=== PATIENT | male | born 1985 | race African-American/Black ===

== ENCOUNTER 2018-01-09 17:15 | Inpatient (IN) | payer MEDICAID ==
[~2018-01-09] VITALS: Ht 172.7 cm; Wt 83.9 kg
[~2018-01-09 17:15] MED LIST: QUET50TA PO
[2018-01-09 17:46] LABS: BASOPHILS % (AUTO) 0.3 % (0.0-2.0); EOSINOPHILS % (AUTO) 1.5 % (1.0-6.0); HEMATOCRIT 42.4 % (41-53); HEMOGLOBIN 14.5 g/dL (13.5-17.5); MEAN CORPUSCULAR HEMOGLOBIN 29.7 pg (26.0-34.0); MEAN CORPUSCULAR HGB CONC 34.1 G/dL (31.0-37.0); MEAN CORPUSCULAR VOLUME 87 fL (80-100); MONOCYTES # (AUTO) 0.7 K/uL (0.1-1.0); MONOCYTES % (AUTO) 9.3 % (2.0-9.0); NEUTROPHILS # (AUTO) 4.9 K/uL (1.8-7.7); NEUTROPHILS % (AUTO) 62.9 % (40.0-70.0); PLATELET COUNT (AUTO) 350 K/uL (150-450); RED BLOOD CELL COUNT(AUTO) 4.86 MIL/uL (4.50-5.90); RED CELL DISTRIBUTION WIDTH 13.4 % (11.5-14.5)
[2018-01-09 17:55] LABS: ANION GAP 7 mmol/L (8-16); CALCIUM, TOTAL 9.1 mg/dL (8.8-10.5); CARBON DIOXIDE 31 mmol/L (22-29); CHLORIDE 104 mmol/L (98-107); CREATININE 0.86 mg/dL (0.60-1.30); GLOMERULAR FILTR. RATE CALC > 60 mL/min (>60); GLUCOSE,RANDOM 101 mg/dL (70-110); POTASSIUM 3.8 mmol/L (3.5-5.1); SODIUM SERUM 142 mmol/L (136-145); UREA NITROGEN, BLOOD 14 mg/dL (7-18)
[2018-01-09 18:02] LABS: ALANINE AMINOTRANSFERASE 67 U/L (12-78); ALBUMIN 3.8 g/dL (3.4-5.0); ALKALINE PHOSPHATASE 55 U/L (46-116); ASPARTATE AMINOTRANSFERASE 44 U/L (15-37); BILIRUBIN,TOTAL 0.2 mg/dL (0.1-1.0); TOTAL PROTEIN, SERUM 7.6 g/dL (6.4-8.2)
[2018-01-09] MEDS ORDERED: HALOPERIDOL 5 MG TABLET PO PRN (18:15)
[2018-01-09 19:11] LABS: AMPHET/METH SCREEN,URINE NEGATIVE (NEGATIVE); BARBITURATE SCREEN, URINE NEGATIVE (NEGATIVE); BENZODIAZEPINES SCREEN,URINE NEGATIVE (NEGATIVE); CANNABINOID SCREEN,URINE NEGATIVE (NEGATIVE); COCAINE SCREEN,URINE NEGATIVE (NEGATIVE); METHADONE SCREEN, URINE NEGATIVE (NEGATIVE); OPIATE SCREEN,URINE NEGATIVE (NEGATIVE); PHENCYCLIDINE SCREEN,URINE NEGATIVE (NEGATIVE)
[2018-01-09 20:11] VITALS: BP 137/92
[2018-01-09] MEDS: LORazepam 2 MG TABLET PO PRN (20:20)
[2018-01-09] MEDS: ZOLPIDEM TARTRATE 10 MG TABLET PO PRN (20:20)
[2018-01-10 04:42] VITALS: BP 128/85
[2018-01-10] MEDS: LORazepam 2 MG TABLET PO PRN ×3 (04:42→20:24)
[2018-01-10 08:02] VITALS: BP 130/80
[2018-01-10 08:33] LABS: CHOL/HDL RATIO 1.9 (4.2-7.3)
[2018-01-10] MEDS ORDERED: BACITRACIN 28.4 GM OINTMENT TP PRN (10:00)
[2018-01-10] MEDS ORDERED: ACETAMINOPHEN 325 MG TABLET PO PRN (10:00)
[2018-01-10] MEDS ORDERED: CloNIDine HCL 0.1 MG TABLET PO PRN (10:00)
[2018-01-10] MEDS ORDERED: BENZOCAINE/MENTHOL LOZENGE MM PRN (10:00)
[2018-01-10] MEDS ORDERED: PETROLATUM,WHITE 71 GM JELLY TP PRN (10:00)
[2018-01-10] MEDS ORDERED: MAGNESIUM HYDROXIDE SUSPENSION 30 ML UDCUP PO PRN (10:00)
[2018-01-10] MEDS ORDERED: ONDANSETRON HCL 4 MG TABLET PO PRN (10:00)
[2018-01-10] MEDS ORDERED: MAG HYDROX/AL HYDROX/SIMETH ES 30 ML SUSPENSION UDCUP PO PRN (10:00)
[2018-01-10] MEDS ORDERED: LOPERAMIDE HCL 2 MG CAPSULE PO PRN (10:00)
[2018-01-10 16:05] VITALS: BP 138/85
[2018-01-10] MEDS: ZOLPIDEM TARTRATE 10 MG TABLET PO PRN (20:24)
[2018-01-11 03:51] VITALS: BP 132/89
[2018-01-11] MEDS: LORazepam 2 MG TABLET PO PRN ×4 (03:53→20:25)
[2018-01-11 08:05] VITALS: BP 137/82
[2018-01-11] MEDS: ALBUTEROL SULFATE HFA 90 MCG/PUFF 8 GM INHALER IH PRN ×2 (15:02→21:18)
[2018-01-11 16:29] VITALS: BP 136/66
[2018-01-11] MEDS: ZOLPIDEM TARTRATE 10 MG TABLET PO PRN (20:25)
[2018-01-11] MEDS: QUEtiapine FUMARATE 300 MG TABLET PO SCH (20:25)
[2018-01-12 08:25] VITALS: BP 134/75
[2018-01-12] MEDS: LORazepam 2 MG TABLET PO PRN ×2 (09:45→17:26)
[2018-01-12] MEDS: NICOTINE 21 MG/24 HOUR PATCH TD SCH (10:39)
[2018-01-12 16:06] VITALS: BP 137/76
[2018-01-12] MEDS: QUEtiapine FUMARATE 300 MG TABLET PO SCH (20:11)
[2018-01-12] MEDS: ZOLPIDEM TARTRATE 10 MG TABLET PO PRN ×2 (20:11→20:33)
[2018-01-13] MEDS: LORazepam 2 MG TABLET PO PRN ×2 (00:39→16:34)
[2018-01-13 05:56] VITALS: BP 122/83
[2018-01-13 08:10] VITALS: BP 116/61
[2018-01-13] MEDS: NICOTINE 21 MG/24 HOUR PATCH TD SCH (08:51)
[2018-01-13 16:27] VITALS: BP 144/93
[2018-01-13] MEDS: QUEtiapine FUMARATE 300 MG TABLET PO SCH (21:00)
[2018-01-13] MEDS: ZOLPIDEM TARTRATE 10 MG TABLET PO PRN (21:00)
[2018-01-14 00:27] VITALS: BP 124/89
[2018-01-14] MEDS: IBUPROFEN 600 MG TABLET PO PRN ×2 (05:17→19:26)
[2018-01-14 08:07] VITALS: BP 132/86
[2018-01-14] MEDS: NICOTINE 21 MG/24 HOUR PATCH TD SCH (08:44)
[2018-01-14 16:20] VITALS: BP 136/85
[2018-01-14] MEDS: LORazepam 2 MG TABLET PO PRN (16:40)
[2018-01-14] MEDS: ZOLPIDEM TARTRATE 10 MG TABLET PO PRN (20:17)
[2018-01-14] MEDS: QUEtiapine FUMARATE 300 MG TABLET PO SCH (20:17)
[2018-01-15 02:49] VITALS: BP 117/87
[2018-01-15 08:05] VITALS: BP 121/61
[2018-01-15] MEDS: NICOTINE 21 MG/24 HOUR PATCH TD SCH (09:00)
[2018-01-15] MEDS: LORazepam 2 MG TABLET PO PRN (12:42)
[2018-01-15 16:13] VITALS: BP 135/78
[2018-01-15] MEDS: ZOLPIDEM TARTRATE 10 MG TABLET PO PRN (20:30)
[2018-01-15] MEDS: QUEtiapine FUMARATE 300 MG TABLET PO SCH (20:30)
[2018-01-16 01:20] VITALS: BP 121/69
[2018-01-16] MEDS: IBUPROFEN 600 MG TABLET PO PRN (01:23)
[2018-01-16] MEDS: NICOTINE 21 MG/24 HOUR PATCH TD SCH (08:19)
[2018-01-16] MEDS: LORazepam 2 MG TABLET PO PRN (08:20)
[2018-01-16 08:53] VITALS: BP 124/61
== END 2018-01-16 13:30 | disposition home or self-care (01) | DRG 750 ==
LOC: EMS 17:17 → B3A 18:41
PROVIDERS: ADMIT Psychiatry & Neurology Psychiatry; ATTEND Psychiatry & Neurology Psychiatry
DX: F25.9 Schizoaffective disorder, unspecified (principal); E78.5 Hyperlipidemia, unspecified; F17.200 Nicotine dependence, unspecified, uncomplicated; G47.00 Insomnia, unspecified; F41.9 Anxiety disorder, unspecified; R03.0 Elevated blood-pressure reading, without diagnosis of hypertension
CPT/HCPCS: 99285; G0480; J3535

== ENCOUNTER 2019-02-10 12:09 | Inpatient (IN) | payer MEDICAID ==
[~2019-02-10] VITALS: Ht 172.7 cm; Wt 88.9 kg
[~2019-02-10 12:09] MED LIST changes: +BUPR-93 PO; +QUET100T PO; +QUET200T PO; -QUET50TA PO
[2019-02-10] MEDS ORDERED: QUEtiapine FUMARATE 100 MG TABLET PO ONE (13:15)
[2019-02-10 13:30] LABS: BASOPHILS % (AUTO) 0.5 % (0.0-2.0); EOSINOPHILS % (AUTO) 0.3 % (1.0-6.0); HEMOGLOBIN 14.8 g/dL (13.5-17.5); LYMPHOCYTES # (AUTO) 1.9 K/uL (1.0-4.8); MEAN CORPUSCULAR HEMOGLOBIN 29.2 pg (26.0-34.0); MEAN CORPUSCULAR HGB CONC 32.8 G/dL (31.0-37.0); MEAN CORPUSCULAR VOLUME 89 fL (80-100); MONOCYTES % (AUTO) 11.9 % (2.0-9.0); NEUTROPHILS # (AUTO) 5.3 K/uL (1.8-7.7); NEUTROPHILS % (AUTO) 64.3 % (40.0-70.0); PLATELET COUNT (AUTO) 265 K/uL (150-450); RED BLOOD CELL COUNT(AUTO) 5.05 MIL/uL (4.50-5.90); RED CELL DISTRIBUTION WIDTH 13.9 % (11.5-14.5)
[2019-02-10 13:41] LABS: ANION GAP 11 mmol/L (8-16); CALCIUM, TOTAL 9.5 mg/dL (8.8-10.5); CARBON DIOXIDE 29 mmol/L (22-29); CHLORIDE 103 mmol/L (98-107); CREATININE 1.04 mg/dL (0.60-1.30); GLOMERULAR FILTR. RATE CALC > 60 mL/min (>60); GLUCOSE,RANDOM 89 mg/dL (70-110); POTASSIUM 3.7 mmol/L (3.5-5.1); SODIUM SERUM 143 mmol/L (136-145); UREA NITROGEN, BLOOD 14 mg/dL (7-18)
[2019-02-10 13:49] LABS: ALANINE AMINOTRANSFERASE 22 U/L (12-78); ALBUMIN 4.2 g/dL (3.4-5.0); ALKALINE PHOSPHATASE 71 U/L (46-116); ASPARTATE AMINOTRANSFERASE 30 U/L (15-37); BILIRUBIN,TOTAL 0.4 mg/dL (0.1-1.0); TOTAL PROTEIN, SERUM 8.5 g/dL (6.4-8.2)
[2019-02-11] MEDS ORDERED: MAG HYDROX/AL HYDROX/SIMETH ES 30 ML SUSPENSION UDCUP PO PRN (11:30)
[2019-02-11] MEDS ORDERED: MAGNESIUM HYDROXIDE SUSPENSION 30 ML UDCUP PO PRN (11:30)
[2019-02-11] MEDS ORDERED: ONDANSETRON HCL 4 MG TABLET PO PRN (11:30)
[2019-02-11] MEDS ORDERED: ACETAMINOPHEN 325 MG TABLET PO PRN (11:30)
[2019-02-11] MEDS ORDERED: DOCUSATE SODIUM 100 MG CAPSULE PO PRN (11:30)
[2019-02-11] MEDS ORDERED: PETROLATUM,WHITE 28 GM JELLY TP PRN (11:30)
[2019-02-11] MEDS ORDERED: CloNIDine HCL 0.1 MG TABLET PO PRN (11:30)
[2019-02-11] MEDS ORDERED: ALBUTEROL SULFATE HFA 90 MCG/PUFF 8 GM INHALER IH PRN (11:30)
[2019-02-11] MEDS ORDERED: GuaiFENesin/D-METHORPHAN [SUGAR-FREE] 200-20MG/10 ML SYRUP UDCUP PO PRN (11:30)
[2019-02-11] MEDS ORDERED: IBUPROFEN 400 MG TABLET PO PRN (11:30)
[2019-02-11] MEDS ORDERED: LOPERAMIDE HCL 2 MG CAPSULE PO PRN (11:30)
[2019-02-11] MEDS ORDERED: NICOTINE 14 MG/24 HOUR PATCH TD PRN (11:30)
[2019-02-11 13:00] VITALS: BP 122/75
[2019-02-11] MEDS: ARIPiprazole 15 MG TABLET PO SCH (14:11)
[2019-02-11 16:22] VITALS: BP 143/87
[2019-02-11] MEDS ORDERED: DIVALPROEX SODIUM 500 MG DR TABLET PO SCH (21:00)
[2019-02-12 00:12] VITALS: BP 118/70
[2019-02-12 08:05] VITALS: BP 117/73
[2019-02-12 08:29] LABS: BASOPHILS % (AUTO) 0.6 % (0.0-2.0); EOSINOPHILS % (AUTO) 2.3 % (1.0-6.0); HEMATOCRIT 45.1 % (41-53); HEMOGLOBIN 14.9 g/dL (13.5-17.5); LYMPHOCYTES # (AUTO) 2.4 K/uL (1.0-4.8); LYMPHOCYTES % (AUTO) 37.9 % (22.0-44.0); MEAN CORPUSCULAR HEMOGLOBIN 29.2 pg (26.0-34.0); MEAN CORPUSCULAR HGB CONC 33.1 G/dL (31.0-37.0); MEAN CORPUSCULAR VOLUME 88 fL (80-100); MONOCYTES # (AUTO) 0.8 K/uL (0.1-1.0); MONOCYTES % (AUTO) 12.6 % (2.0-9.0); NEUTROPHILS % (AUTO) 46.6 % (40.0-70.0); PLATELET COUNT (AUTO) 311 K/uL (150-450)
[2019-02-12] MEDS: ARIPiprazole 15 MG TABLET PO SCH (08:38)
[2019-02-12 09:33] LABS: HEMOGLOBIN A1C 5.8 % (4.5-6.2)
[2019-02-12 09:39] LABS: ALANINE AMINOTRANSFERASE 20 U/L (12-78); ALBUMIN 3.3 g/dL (3.4-5.0); ALKALINE PHOSPHATASE 62 U/L (46-116); ANION GAP 9 mmol/L (8-16); ASPARTATE AMINOTRANSFERASE 19 U/L (15-37); BILIRUBIN,TOTAL 0.3 mg/dL (0.1-1.0); CALCIUM, TOTAL 8.3 mg/dL (8.8-10.5); CARBON DIOXIDE 30 mmol/L (22-29); CHLORIDE 105 mmol/L (98-107); CHOL/HDL RATIO 2.7 (4.2-7.3); CHOLESTEROL 111 mg/dL (131-200); CREATININE 0.99 mg/dL (0.60-1.30); GLOMERULAR FILTR. RATE CALC > 60 mL/min (>60); GLUCOSE,RANDOM 95 mg/dL (70-110); HDL CHOLESTEROL 41 mg/dL (40-60); LDL CHOL (CALC.) 54 mg/dL (0-130); POTASSIUM 4.1 mmol/L (3.5-5.1); SODIUM SERUM 144 mmol/L (136-145); THYROID STIMULATING HORMONE 0.94 uIU/mL (0.36-3.74); TOTAL PROTEIN, SERUM 6.7 g/dL (6.4-8.2); TRIGLYCERIDES 82 mg/dL (15-150); UREA NITROGEN, BLOOD 20 mg/dL (7-18)
[2019-02-12 16:02] VITALS: BP 125/76
[2019-02-12] MEDS: DIVALPROEX SODIUM 500 MG DR TABLET PO SCH (16:41)
[2019-02-12] MEDS: LORazepam 2 MG TABLET PO PRN (20:59)
[2019-02-13 06:14] VITALS: BP 140/89
[2019-02-13 08:11] VITALS: BP 138/83
[2019-02-13] MEDS: ARIPiprazole 15 MG TABLET PO SCH (09:04)
[2019-02-13] MEDS: DIVALPROEX SODIUM 500 MG DR TABLET PO SCH ×2 (09:05→16:19)
[2019-02-13] MEDS: LORazepam 2 MG TABLET PO PRN (11:02)
[2019-02-13 16:04] VITALS: BP 124/71
[2019-02-14 01:11] VITALS: BP 128/76
[2019-02-14] MEDS: ZOLPIDEM TARTRATE 10 MG TABLET PO PRN (02:49)
[2019-02-14 08:02] VITALS: BP 113/71
[2019-02-14] MEDS: ARIPiprazole 15 MG TABLET PO SCH (08:55)
[2019-02-14] MEDS: DIVALPROEX SODIUM 500 MG DR TABLET PO SCH ×2 (08:55→16:07)
[2019-02-14] MEDS: LORazepam 2 MG TABLET PO PRN ×2 (09:23→16:25)
[2019-02-14 16:16] VITALS: BP 130/75
[2019-02-14] MEDS: QUEtiapine FUMARATE 25 MG TABLET PO PRN (19:43)
[2019-02-15 00:50] VITALS: BP 127/81
[2019-02-15 08:01] VITALS: BP 122/72
[2019-02-15] MEDS: DIVALPROEX SODIUM 500 MG DR TABLET PO SCH ×2 (08:37→16:19)
[2019-02-15] MEDS: ARIPiprazole 15 MG TABLET PO SCH (08:37)
[2019-02-15] MEDS: LORazepam 2 MG TABLET PO PRN (09:05)
[2019-02-15 16:04] VITALS: BP 119/64
[2019-02-15] MEDS: QUEtiapine FUMARATE 25 MG TABLET PO PRN (17:13)
[2019-02-16 00:19] VITALS: BP 118/74
[2019-02-16] MEDS: ZOLPIDEM TARTRATE 10 MG TABLET PO PRN (01:28)
[2019-02-16 08:04] VITALS: BP 136/69
[2019-02-16] MEDS: ARIPiprazole 15 MG TABLET PO SCH (08:35)
[2019-02-16] MEDS: DIVALPROEX SODIUM 500 MG DR TABLET PO SCH ×2 (08:35→16:15)
[2019-02-16] MEDS: LORazepam 2 MG TABLET PO PRN (09:25)
[2019-02-16 16:06] VITALS: BP 135/90
[2019-02-17 02:00] VITALS: BP 124/87
[2019-02-17 08:10] VITALS: BP 105/60
[2019-02-17] MEDS: DIVALPROEX SODIUM 500 MG DR TABLET PO SCH (08:37)
[2019-02-17] MEDS: ARIPiprazole 15 MG TABLET PO SCH (08:37)
[2019-02-17] MEDS: LORazepam 2 MG TABLET PO PRN (09:18)
[2019-02-17] MEDS ORDERED: DIVA-76 PO (13:35)
[2019-02-17] MEDS ORDERED: ARIP5TAB8 PO (13:35)
== END 2019-02-17 18:23 | disposition home or self-care (01) | DRG 750 ==
LOC: EMS 12:09 → 3EC 21:19 → UNDOADMIN 21:19 → 3EC 02-11 07:01 → B2X 02-11 08:31
PROVIDERS: ADMIT Psychiatry & Neurology Child & Adolescent Psychiatry; ATTEND Psychiatry & Neurology Child & Adolescent Psychiatry
DX: F20.9 Schizophrenia, unspecified (principal); Z91.14 Patient's other noncompliance with medication regimen; F19.10 Other psychoactive substance abuse, uncomplicated; F41.9 Anxiety disorder, unspecified; G44.209 Tension-type headache, unspecified, not intractable; K21.9 Gastro-esophageal reflux disease without esophagitis; Z79.899 Other long term (current) drug therapy; Z88.8 Allergy status to other drugs, medicaments and biological substances; Z71.41 Alcohol abuse counseling and surveillance of alcoholic; Z71.51 Drug abuse counseling and surveillance of drug abuser
CPT/HCPCS: 83036; 84443; G0480

== ENCOUNTER 2019-02-20 15:23 | Emergency (ER) | payer MEDICAID ==
[~2019-02-20] VITALS: Ht 172.7 cm; Wt 81.8 kg
[~2019-02-20 15:23] MED LIST changes: +ARIP5TAB8 PO; -BUPR-93 PO; +DIVA-76 PO; -QUET100T PO; -QUET200T PO
[2019-02-20 16:52] LABS: BASOPHILS % (AUTO) 0.6 % (0.0-2.0); EOSINOPHILS % (AUTO) 0.4 % (1.0-6.0); HEMATOCRIT 45.6 % (41-53); LYMPHOCYTES # (AUTO) 2.2 K/uL (1.0-4.8); LYMPHOCYTES % (AUTO) 24.3 % (22.0-44.0); MEAN CORPUSCULAR HEMOGLOBIN 28.5 pg (26.0-34.0); MEAN CORPUSCULAR HGB CONC 32.8 G/dL (31.0-37.0); MEAN CORPUSCULAR VOLUME 87 fL (80-100); MONOCYTES # (AUTO) 0.9 K/uL (0.1-1.0); MONOCYTES % (AUTO) 9.8 % (2.0-9.0); NEUTROPHILS # (AUTO) 5.8 K/uL (1.8-7.7); NEUTROPHILS % (AUTO) 64.9 % (40.0-70.0); PLATELET COUNT (AUTO) 364 K/uL (150-450); RED BLOOD CELL COUNT(AUTO) 5.25 MIL/uL (4.50-5.90); RED CELL DISTRIBUTION WIDTH 13.9 % (11.5-14.5)
[2019-02-20 17:09] LABS: ANION GAP 11 mmol/L (8-16); CALCIUM, TOTAL 9.4 mg/dL (8.8-10.5); CARBON DIOXIDE 28 mmol/L (22-29); CHLORIDE 104 mmol/L (98-107); CREATININE 1.04 mg/dL (0.60-1.30); GLOMERULAR FILTR. RATE CALC > 60 mL/min (>60); GLUCOSE,RANDOM 100 mg/dL (70-110); POTASSIUM 3.6 mmol/L (3.5-5.1); SODIUM SERUM 143 mmol/L (136-145); UREA NITROGEN, BLOOD 20 mg/dL (7-18)
[2019-02-20 17:14] LABS: ALANINE AMINOTRANSFERASE 27 U/L (12-78); ALBUMIN 4.1 g/dL (3.4-5.0); ALKALINE PHOSPHATASE 59 U/L (46-116); ASPARTATE AMINOTRANSFERASE 30 U/L (15-37); BILIRUBIN,TOTAL 0.4 mg/dL (0.1-1.0); TOTAL PROTEIN, SERUM 8.3 g/dL (6.4-8.2)
[2019-02-20] MEDS ORDERED: DIVALPROEX SODIUM 250 MG DR TABLET PO ONE (18:30)
[2019-02-20] MEDS ORDERED: ARIPiprazole 15 MG TABLET PO ONE (18:30)
[2019-02-20 18:40] VITALS: BP 139/95
== END 2019-02-20 18:55 | disposition home or self-care (01) ==
LOC: EMS 15:23
DX: F20.9 Schizophrenia, unspecified (principal); F17.210 Nicotine dependence, cigarettes, uncomplicated; Z79.899 Other long term (current) drug therapy; Z88.8 Allergy status to other drugs, medicaments and biological substances
CPT/HCPCS: 36415; 80053; 85025; 99285; 99406; G0480

== ENCOUNTER 2023-02-06 16:21 | Inpatient (IN) | payer MEDICAID ==
[~2023-02-06] VITALS: Ht 172.7 cm; Wt 106.2 kg
[~2023-02-06 16:21] MED LIST changes: +ARIP5TAB37 PO; -ARIP5TAB8 PO; +DIVA-111 PO; -DIVA-76 PO
[2023-02-06] MEDS ORDERED: QUET100T34 PO (17:14)
[2023-02-06] MEDS ORDERED: BUPR-49 PO (17:14)
[2023-02-06] MEDS ORDERED: HYDR-4527 PO (17:14)
[2023-02-06] MEDS ORDERED: QUET400T13 PO (17:14)
[2023-02-06] MEDS ORDERED: DIPH25CA85 PO (17:15)
[2023-02-06] MEDS ORDERED: MAGNESIUM SULFATE 2 GM/WATER 50 ML IV ONE (17:30)
[2023-02-06] MEDS ORDERED: RISPC375 IM (17:37)
[2023-02-06 17:41] LABS: ABG BASE EXCESS -0.6 mmol/L (-2.0-3.0); ABG CARBOXYHEMOGLOBIN 2.4 % (0.0-1.5); ABG HCO3 22.8 mmol/L (22.0-26.0); ABG METHEMOGLOBIN 0.4 % (0.0-1.5); ABG OXYGEN SATURATION 97.1 % (95.0-98.0); ABG OXYHEMOGLOBIN 94.4 % (94.0-100.0); ABG PCO2 56 mmHg (35-45); ABG TOTAL HEMOGLOBIN 16.5 G/dL (12.0-18.0); PO2, ARTERIAL BG 95.9 mmHg (92.0-100.0); SOURCE, BLOOD GAS ARTERIAL; TEMPERATURE, FAHRENHEIT, BG 95.4 FAHREN (96.0-98.6)
[2023-02-06 17:43] LABS: BASOPHILS % (AUTO) 0.5 % (0.0-2.0); EOSINOPHILS % (AUTO) 0.2 % (1.0-6.0); HEMATOCRIT 46.7 % (41-53); HEMOGLOBIN 15.2 g/dL (13.5-17.5); LYMPHOCYTES # (AUTO) 1.1 K/uL (1.0-4.8); LYMPHOCYTES % (AUTO) 8.3 % (22.0-44.0); MEAN CORPUSCULAR HEMOGLOBIN 29.8 pg (26.0-34.0); MEAN CORPUSCULAR HGB CONC 32.5 G/dL (31.0-37.0); MEAN CORPUSCULAR VOLUME 92 fL (80-100); MONOCYTES # (AUTO) 0.8 K/uL (0.1-1.0); NEUTROPHILS # (AUTO) 11.1 K/uL (1.8-7.7); PLATELET COUNT (AUTO) 259 K/uL (150-450); RED CELL DISTRIBUTION WIDTH 13.9 % (11.5-14.5)
[2023-02-06 17:43] LABS: ABG A-A DIFF O2 156.2 mmHg (10-20.0); ABG PH 7.285 (7.350-7.450); O2 DEVICE,BLOOD GAS CANNULA (ROOM AIR); SITE, BLOOD GAS RT RADIAL
[2023-02-06 17:44] LABS: COVID AG,FIA SOURCE NASOPHARYNGEAL
[2023-02-06 17:51] LABS: ANION GAP 9 mmol/L (8-16); CALCIUM, TOTAL 8.6 mg/dL (8.8-10.5); CARBON DIOXIDE 26 mmol/L (22-29); CHLORIDE 102 mmol/L (98-107); CREATININE 1.22 mg/dL (0.60-1.30); GLOMERULAR FILTR. RATE CALC > 60 mL/min (>60); GLUCOSE,RANDOM 179 mg/dL (70-110); POTASSIUM 4.6 mmol/L (3.5-5.1); SODIUM SERUM 137 mmol/L (136-145)
[2023-02-06 17:53] LABS: APPEARANCE,URINE CLEAR (CLEAR); BILIRUBIN,URINE NEGATIVE (NEGATIVE); GLUCOSE, URINE (UA) 70-100 mg/dL (NEGATIVE); KETONES,URINE TRACE mg/dL (NEGATIVE); LEUKOCYTE ESTERASE ,URINE NEGATIVE (NEGATIVE); NITRATE,URINE NEGATIVE (NEGATIVE); OCCULT BLOOD,URINE NEGATIVE (NEGATIVE); PH,URINE 5.5 (5.0-8.0); PROTEIN,URINE 100-200,SEE CONFIRM mg/dL (NEGATIVE); SPECIFIC GRAVITIY, URINE 1.033 (1.003-1.030); UROBILINOGEN,URINE <=1.0 mg/dL (<=1.0)
[2023-02-06 17:55] LABS: PROTHROMBIN TIME 10.8 SEC (9.4-11.6)
[2023-02-06 17:58] LABS: AMMONIA 15 umol/L (11-32)
[2023-02-06 17:59] LABS: LACTIC ACID 1.1 mmol/L (0.4-2.0)
[2023-02-06 18:00] LABS: AMPHET/METH SCREEN,URINE POSITIVE (NEGATIVE); BARBITURATE SCREEN, URINE NEGATIVE (NEGATIVE); BENZODIAZEPINES SCREEN,URINE NEGATIVE (NEGATIVE); CANNABINOID SCREEN,URINE NEGATIVE (NEGATIVE); COCAINE SCREEN,URINE NEGATIVE (NEGATIVE); METHADONE SCREEN, URINE NEGATIVE (NEGATIVE); OPIATE SCREEN,URINE NEGATIVE (NEGATIVE); PHENCYCLIDINE SCREEN,URINE NEGATIVE (NEGATIVE)
[2023-02-06 18:13] LABS: SULFOSALICYLIC ACID,URINE 1+ (Negative)
[2023-02-06 18:14] LABS: BACTERIA,URINE None Seen /HPF (None Seen); RBC,URINE None Seen /HPF (0-2); WBC,URINE 0-2 /HPF (0-5)
[2023-02-06] MEDS ORDERED: NALOXONE HCL 1 MG/ML 2 ML SYRINGE IVP ONE ×3 (18:15→19:45)
[2023-02-06 18:16] LABS: ACETAMINOPHEN < 2 mcg/mL (10-30); ALANINE AMINOTRANSFERASE 218 U/L (12-78); ALKALINE PHOSPHATASE 61 U/L (46-116); ASPARTATE AMINOTRANSFERASE 230 U/L (15-37); BILIRUBIN,TOTAL 0.4 mg/dL (0.1-1.0); CREATINE KINASE, TOTAL ONLY 1303 U/L (39-308)
[2023-02-06 18:54] LABS: SALICYLATE 5.6 mg/dL (2.8-20.0)
[2023-02-06] MEDS ORDERED: IPRATROPIUM BROMIDE 0.5 MG/2.5 ML NEB SOLUTION NEB PRN (19:30)
[2023-02-06] MEDS ORDERED: ALBUTEROL SULFATE 2.5 MG/0.5 ML NEB SOLUTION NEB PRN (19:30)
[2023-02-06] MEDS ORDERED: NALOXONE HCL 10 MG in DEXTROSE 5%-WATER 240 ML IV PRN ×2 (19:30)
[2023-02-06] MEDS ORDERED: ONDANSETRON HCL 4 MG/2 ML VIAL IVP PRN (19:30)
[2023-02-06] MEDS ORDERED: ACETAMINOPHEN 325 MG TABLET PO PRN (19:30)
[2023-02-06] MEDS: DOCUSATE SODIUM 100 MG CAPSULE PO SCH (21:00)
[2023-02-06 21:56] LABS: PROTHROMBIN TIME 11.1 SEC (9.4-11.6)
[2023-02-06] MEDS ORDERED: CefTRIAXone 1 GM/DEXTROSE 50 ML IV ONE (22:00)
[2023-02-06] MEDS: SODIUM CHLORIDE 0.9% 1,000 ML IV SCH (22:08)
[2023-02-06 22:26] LABS: ALANINE AMINOTRANSFERASE 178 U/L (12-78); ALBUMIN 3.4 g/dL (3.4-5.0); ALKALINE PHOSPHATASE 50 U/L (46-116); ANION GAP 8 mmol/L (8-16); ASPARTATE AMINOTRANSFERASE 185 U/L (15-37); BILIRUBIN,TOTAL 0.4 mg/dL (0.1-1.0); CALCIUM, TOTAL 7.5 mg/dL (8.8-10.5); CARBON DIOXIDE 25 mmol/L (22-29); CHLORIDE 95 mmol/L (98-107); CREATININE 1.13 mg/dL (0.60-1.30); GLOMERULAR FILTR. RATE CALC > 60 mL/min (>60); SODIUM SERUM 128 mmol/L (136-145); TOTAL PROTEIN, SERUM 6.8 g/dL (6.4-8.2)
[2023-02-06 22:27] LABS: THYROID STIMULATING HORMONE 0.2 uIU/mL (0.36-3.74); VALPROIC ACID < 3 mcg/mL (50-100)
[2023-02-06 22:30] LABS: GLUCOSE,RANDOM 451 mg/dL (70-110)
[2023-02-06] MEDS ORDERED: INSULIN LISPRO 100 UNITS/ML SQ ONE (22:45)
[2023-02-06 23:55] LABS: LACTATE DEHYDROGENASE 396 U/L (85-227)
[2023-02-07] MEDS: HEPARIN SODIUM,PORCINE 5,000 UNITS/ML VIAL SQ SCH ×4 (00:14→23:48)
[2023-02-07] MEDS ORDERED: NALOXONE HCL 10 MG in DEXTROSE 5%-WATER 240 ML IV PRN (00:30)
[2023-02-07 00:54] LABS: ANION GAP 7 mmol/L (8-16); CALCIUM, TOTAL 7.8 mg/dL (8.8-10.5); CARBON DIOXIDE 26 mmol/L (22-29); CHLORIDE 101 mmol/L (98-107); CREATININE 1.04 mg/dL (0.60-1.30); GLOMERULAR FILTR. RATE CALC > 60 mL/min (>60); GLUCOSE,RANDOM 246 mg/dL (70-110); POTASSIUM 3.9 mmol/L (3.5-5.1); SODIUM SERUM 134 mmol/L (136-145)
[2023-02-07 01:10] LABS: ACETAMINOPHEN < 2 mcg/mL (10-30)
[2023-02-07] MEDS ORDERED: LACTULOSE 20 GM/30 ML SOLUTION UDCUP PO ONE (06:15)
[2023-02-07 06:24] LABS: FREE T4 (FREE THYROXINE) 1.45 ng/dL (0.76-1.46)
[2023-02-07] MEDS: SODIUM CHLORIDE 0.9% 1,000 ML IV SCH ×2 (08:06→18:13)
[2023-02-07] MEDS: DOCUSATE SODIUM 100 MG CAPSULE PO SCH ×2 (09:00→21:00)
[2023-02-07 13:38] VITALS: BP 103/74
[2023-02-07 15:31] VITALS: BP 126/78
[2023-02-07 18:21] LABS: SALICYLATE 4.7 mg/dL (2.8-20.0)
[2023-02-07 18:28] LABS: BILIRUBIN,DIRECT 0.1 mg/dL (0.00-0.20); BILIRUBIN,TOTAL 0.4 mg/dL (0.1-1.0); TOTAL PROTEIN, SERUM 6.3 g/dL (6.4-8.2)
[2023-02-07 19:46] VITALS: BP 136/73
[2023-02-08 00:05] VITALS: BP 156/75
[2023-02-08 04:33] VITALS: BP 150/88
[2023-02-08] MEDS: SODIUM CHLORIDE 0.9% 1,000 ML IV SCH ×3 (04:38→23:34)
[2023-02-08 06:35] LABS: HEMATOCRIT 42.1 % (41-53); MEAN CORPUSCULAR HGB CONC 33.2 G/dL (31.0-37.0); MEAN CORPUSCULAR VOLUME 90 fL (80-100); PLATELET COUNT (AUTO) 231 K/uL (150-450); RED BLOOD CELL COUNT(AUTO) 4.66 MIL/uL (4.50-5.90); RED CELL DISTRIBUTION WIDTH 13.1 % (11.5-14.5)
[2023-02-08 07:34] VITALS: BP 133/76
[2023-02-08 07:52] LABS: BAND NEUTROPHILS % (MANUAL) 0 % (0-5)
[2023-02-08 07:53] LABS: LYMPHOCYTES % (MANUAL) 45 % (22-44); MONOCYTES % (MANUAL) 3 % (2-9); SEGMENTED NEUTROPHILS % 52 % (40-70)
[2023-02-08 07:54] LABS: ALANINE AMINOTRANSFERASE 117 U/L (12-78); ALBUMIN 2.8 g/dL (3.4-5.0); ALKALINE PHOSPHATASE 50 U/L (46-116); ANION GAP 9 mmol/L (8-16); ASPARTATE AMINOTRANSFERASE 88 U/L (15-37); BILIRUBIN,TOTAL 0.3 mg/dL (0.1-1.0); CALCIUM, TOTAL 7.5 mg/dL (8.8-10.5); CARBON DIOXIDE 24 mmol/L (22-29); CHLORIDE 108 mmol/L (98-107); CREATININE 0.97 mg/dL (0.60-1.30); GLOMERULAR FILTR. RATE CALC > 60 mL/min (>60); GLUCOSE,RANDOM 110 mg/dL (70-110); SODIUM SERUM 141 mmol/L (136-145)
[2023-02-08 08:01] LABS: CREATINE KINASE, TOTAL ONLY 2336 U/L (39-308)
[2023-02-08] MEDS: HEPARIN SODIUM,PORCINE 5,000 UNITS/ML VIAL SQ SCH ×3 (08:23→23:26)
[2023-02-08] MEDS: DOCUSATE SODIUM 100 MG CAPSULE PO SCH ×2 (08:23→19:54)
[2023-02-08 11:33] VITALS: BP 124/84
[2023-02-08 15:41] VITALS: BP 132/77
[2023-02-08] MEDS ORDERED: RisperiDONE MICROSPHERES 37.5 MG/2 ML SYRINGE IM ONE (17:00)
[2023-02-08 19:35] VITALS: BP 165/90
[2023-02-09 00:17] VITALS: BP 140/71
[2023-02-09 01:55] VITALS: BP 127/68
[2023-02-09 06:47] LABS: BASOPHILS % (AUTO) 1.6 % (0.0-2.0); EOSINOPHILS % (AUTO) 3.3 % (1.0-6.0); HEMATOCRIT 45.3 % (41-53); HEMOGLOBIN 15.3 g/dL (13.5-17.5); LYMPHOCYTES # (AUTO) 2.5 K/uL (1.0-4.8); LYMPHOCYTES % (AUTO) 36.9 % (22.0-44.0); MEAN CORPUSCULAR HEMOGLOBIN 30.1 pg (26.0-34.0); MEAN CORPUSCULAR HGB CONC 33.9 G/dL (31.0-37.0); MEAN CORPUSCULAR VOLUME 89 fL (80-100); MONOCYTES # (AUTO) 0.9 K/uL (0.1-1.0); MONOCYTES % (AUTO) 13.9 % (2.0-9.0); NEUTROPHILS % (AUTO) 44.3 % (40.0-70.0); PLATELET COUNT (AUTO) 257 K/uL (150-450); RED BLOOD CELL COUNT(AUTO) 5.09 MIL/uL (4.50-5.90); RED CELL DISTRIBUTION WIDTH 12.9 % (11.5-14.5)
[2023-02-09 07:10] LABS: ALANINE AMINOTRANSFERASE 103 U/L (12-78); ALBUMIN 3.4 g/dL (3.4-5.0); ALKALINE PHOSPHATASE 59 U/L (46-116); ANION GAP 4 mmol/L (8-16); ASPARTATE AMINOTRANSFERASE 73 U/L (15-37); BILIRUBIN,TOTAL 0.4 mg/dL (0.1-1.0); CALCIUM, TOTAL 8.9 mg/dL (8.8-10.5); CARBON DIOXIDE 30 mmol/L (22-29); CHLORIDE 104 mmol/L (98-107); CREATININE 0.87 mg/dL (0.60-1.30); GLOMERULAR FILTR. RATE CALC > 60 mL/min (>60); GLUCOSE,RANDOM 97 mg/dL (70-110); POTASSIUM 3.9 mmol/L (3.5-5.1); SODIUM SERUM 138 mmol/L (136-145); TOTAL PROTEIN, SERUM 6.9 g/dL (6.4-8.2)
[2023-02-09 07:34] VITALS: BP 110/70
[2023-02-09] MEDS: DOCUSATE SODIUM 100 MG CAPSULE PO SCH ×2 (08:29→20:09)
[2023-02-09] MEDS: HEPARIN SODIUM,PORCINE 5,000 UNITS/ML VIAL SQ SCH ×3 (08:29→23:39)
[2023-02-09] MEDS: SODIUM CHLORIDE 0.9% 1,000 ML IV SCH ×2 (10:59→20:07)
[2023-02-09 11:50] LABS: CREATINE KINASE, TOTAL ONLY 1938 U/L (39-308)
[2023-02-09 14:06] LABS: HEPATITIS C AB (EIA) Non Reactive (Non Reactive)
[2023-02-09 15:40] VITALS: BP 103/61
[2023-02-09 19:38] VITALS: BP 122/74
[2023-02-10 04:00] VITALS: BP 131/76
[2023-02-10 06:26] LABS: BASOPHILS % (AUTO) 0.8 % (0.0-2.0); EOSINOPHILS % (AUTO) 3.2 % (1.0-6.0); HEMOGLOBIN 15.2 g/dL (13.5-17.5); LYMPHOCYTES # (AUTO) 2.4 K/uL (1.0-4.8); MEAN CORPUSCULAR HEMOGLOBIN 29.7 pg (26.0-34.0); MEAN CORPUSCULAR HGB CONC 33.8 G/dL (31.0-37.0); MEAN CORPUSCULAR VOLUME 88 fL (80-100); MONOCYTES # (AUTO) 0.8 K/uL (0.1-1.0); MONOCYTES % (AUTO) 12.8 % (2.0-9.0); NEUTROPHILS # (AUTO) 3.1 K/uL (1.8-7.7); NEUTROPHILS % (AUTO) 46.2 % (40.0-70.0); PLATELET COUNT (AUTO) 287 K/uL (150-450); RED BLOOD CELL COUNT(AUTO) 5.12 MIL/uL (4.50-5.90); RED CELL DISTRIBUTION WIDTH 13.3 % (11.5-14.5)
[2023-02-10] MEDS: SODIUM CHLORIDE 0.9% 1,000 ML IV SCH ×2 (06:39→15:23)
[2023-02-10 06:50] LABS: ALANINE AMINOTRANSFERASE 101 U/L (12-78); ALBUMIN 3.1 g/dL (3.4-5.0); ALKALINE PHOSPHATASE 51 U/L (46-116); ANION GAP 10 mmol/L (8-16); ASPARTATE AMINOTRANSFERASE 60 U/L (15-37); BILIRUBIN,TOTAL 0.3 mg/dL (0.1-1.0); CALCIUM, TOTAL 8.7 mg/dL (8.8-10.5); CARBON DIOXIDE 26 mmol/L (22-29); CHLORIDE 104 mmol/L (98-107); CREATININE 0.91 mg/dL (0.60-1.30); GLOMERULAR FILTR. RATE CALC > 60 mL/min (>60); GLUCOSE,RANDOM 125 mg/dL (70-110); POTASSIUM 3.9 mmol/L (3.5-5.1); SODIUM SERUM 140 mmol/L (136-145); TOTAL PROTEIN, SERUM 6.9 g/dL (6.4-8.2)
[2023-02-10 08:05] VITALS: BP 118/74
[2023-02-10] MEDS: HEPARIN SODIUM,PORCINE 5,000 UNITS/ML VIAL SQ SCH ×2 (08:20→15:22)
[2023-02-10] MEDS: DOCUSATE SODIUM 100 MG CAPSULE PO SCH (08:20)
[2023-02-10 16:09] VITALS: BP 136/78
== END 2023-02-10 14:50 | disposition home or self-care (01) | DRG 812 ==
LOC: EMS 16:21 → ICU 02-07 07:03 → 5S 02-07 12:48 → 6S 02-09 01:14
PROVIDERS: ADMIT Internal Medicine; ATTEND Hospitalist
PROC: 5A0935A Assistance with Respiratory Ventilation, Less than 24 Consecutive Hours, High Flow/Velocity Cannula (ICD-10-PCS; principal; 2023-02-07)
DX: T40.601A Poisoning by unspecified narcotics, accidental (unintentional), initial encounter (principal); J69.0 Pneumonitis due to inhalation of food and vomit; G92.8 Other toxic encephalopathy; J96.01 Acute respiratory failure with hypoxia; J96.02 Acute respiratory failure with hypercapnia; M62.82 Rhabdomyolysis; E83.39 Other disorders of phosphorus metabolism; E83.41 Hypermagnesemia; E87.29 Other acidosis; Z20.822 Contact with and (suspected) exposure to COVID-19; E03.9 Hypothyroidism, unspecified; R68.0 Hypothermia, not associated with low environmental temperature; E11.65 Type 2 diabetes mellitus with hyperglycemia; F20.9 Schizophrenia, unspecified; R74.8 Abnormal levels of other serum enzymes; Z79.899 Other long term (current) drug therapy; Z87.891 Personal history of nicotine dependence; Y92.89 Other specified places as the place of occurrence of the external cause; Z88.8 Allergy status to other drugs, medicaments and biological substances
CPT/HCPCS: 36600; 51702; 70450; 71045; 72125; 80048; 80053; 80074; 80076; 80164; 80307; 81001; 81002; 81003; 82140; 82533; 82550; 82805; 83036; 83605; 83615; 83735; 83880; 84100; 84439; 84443; 84484; 85025; 85610; 85730; 87040; 93005; 99291; G0480; G0481; J0696; J1644; J1815; J2310; J2794; J3475; J7030; J7060; 36415-L1; 36415-TC

== ENCOUNTER 2023-05-14 17:54 | Emergency (ER) | payer MEDICAID ==
[~2023-05-14] VITALS: Ht 172.7 cm; Wt 109.1 kg
[~2023-05-14 17:54] MED LIST changes: -ARIP5TAB37 PO; +BUPR-49 PO; +DIPH25CA85 PO; -DIVA-111 PO; +HYDR-4527 PO; +QUET100T34 PO; +QUET400T13 PO; +RISPC375 IM
[2023-05-14 17:56] VITALS: BP 112/75; PULSE 67; RESP 20; TEMP 98.8
[2023-05-14 19:09] LABS: BASOPHILS % (AUTO) 0.5 % (0.0-2.0); EOSINOPHILS % (AUTO) 3.6 % (1.0-6.0); HEMATOCRIT 48.6 % (41-53); HEMOGLOBIN 16.1 g/dL (13.5-17.5); LYMPHOCYTES # (AUTO) 2.6 K/uL (1.0-4.8); LYMPHOCYTES % (AUTO) 29.6 % (22.0-44.0); MEAN CORPUSCULAR HEMOGLOBIN 29.6 pg (26.0-34.0); MEAN CORPUSCULAR HGB CONC 33.1 G/dL (31.0-37.0); MEAN CORPUSCULAR VOLUME 89 fL (80-100); MONOCYTES % (AUTO) 11.3 % (2.0-9.0); NEUTROPHILS # (AUTO) 4.8 K/uL (1.8-7.7); PLATELET COUNT (AUTO) 382 K/uL (150-450); RED BLOOD CELL COUNT(AUTO) 5.44 MIL/uL (4.50-5.90); RED CELL DISTRIBUTION WIDTH 13.9 % (11.5-14.5)
[2023-05-14 19:23] LABS: ANION GAP 13 mmol/L (8-16); CALCIUM, TOTAL 9.5 mg/dL (8.8-10.5); CARBON DIOXIDE 24 mmol/L (22-29); CHLORIDE 99 mmol/L (98-107); CREATININE 1.38 mg/dL (0.60-1.30); GLOMERULAR FILTR. RATE CALC > 60 mL/min (>60); GLUCOSE,RANDOM 104 mg/dL (70-110); POTASSIUM 3.1 mmol/L (3.5-5.1); SODIUM SERUM 136 mmol/L (136-145)
[2023-05-14 19:28] LABS: ALANINE AMINOTRANSFERASE 75 U/L (12-78); ALBUMIN 4.2 g/dL (3.4-5.0); ALKALINE PHOSPHATASE 74 U/L (46-116); ASPARTATE AMINOTRANSFERASE 45 U/L (15-37); BILIRUBIN,TOTAL 0.6 mg/dL (0.1-1.0); TOTAL PROTEIN, SERUM 8.2 g/dL (6.4-8.2)
[2023-05-14] MEDS ORDERED: OLAN10TA74 PO (20:54)
[2023-05-14] MEDS ORDERED: POTASSIUM CHLORIDE 10% 40 MEQ/30 ML LIQUID UDCUP PO ONE (21:00)
[2023-05-14] MEDS ORDERED: OLANZapine 5 MG TABLET PO ONE (21:00)
[2023-05-14] MEDS ORDERED: POTASSIUM CHLORIDE 20 MEQ ER TABLET ONE (21:00)
[2023-05-14] MEDS ORDERED: OLANZapine 5 MG TABLET ONE (21:00)
== END 2023-05-14 21:06 | disposition home or self-care (01) ==
LOC: EDUNIT# 17:54 → EMS 18:10
DX: F20.0 Paranoid schizophrenia (principal); E87.6 Hypokalemia; Z88.8 Allergy status to other drugs, medicaments and biological substances
CPT/HCPCS: 99284; 80053; 85025; G0480

== ENCOUNTER 2023-05-24 16:00 | Emergency (ER) | payer MEDICAID ==
[~2023-05-24] VITALS: Ht 175.3 cm; Wt 102.0 kg
[~2023-05-24 16:00] MED LIST changes: +OLAN10TA74 PO
[2023-05-24 16:37] VITALS: TEMP 98.8
[2023-05-24] MEDS ORDERED: MAG HYDROX/AL HYDROX/SIMETH 30 ML SUSP UDCUP PO ONE (16:45)
[2023-05-24] MEDS ORDERED: FAMOTIDINE 20 MG TABLET PO ONE (16:45)
[2023-05-24] MEDS ORDERED: ACETAMINOPHEN 500 MG TABLET PO ONE (16:45)
[2023-05-24 17:03] LABS: BASOPHILS % (AUTO) 0.4 % (0.0-2.0); EOSINOPHILS % (AUTO) 0.8 % (1.0-6.0); HEMATOCRIT 43.5 % (41-53); HEMOGLOBIN 14.7 g/dL (13.5-17.5); LYMPHOCYTES % (AUTO) 22.6 % (22.0-44.0); MEAN CORPUSCULAR HEMOGLOBIN 30.1 pg (26.0-34.0); MEAN CORPUSCULAR HGB CONC 33.7 G/dL (31.0-37.0); MEAN CORPUSCULAR VOLUME 90 fL (80-100); MONOCYTES # (AUTO) 0.8 K/uL (0.1-1.0); MONOCYTES % (AUTO) 8.6 % (2.0-9.0); NEUTROPHILS # (AUTO) 5.9 K/uL (1.8-7.7); NEUTROPHILS % (AUTO) 67.6 % (40.0-70.0); PLATELET COUNT (AUTO) 360 K/uL (150-450); RED BLOOD CELL COUNT(AUTO) 4.86 MIL/uL (4.50-5.90); RED CELL DISTRIBUTION WIDTH 13.5 % (11.5-14.5); WHITE BLOOD COUNT (AUTO) 8.7 K/uL (4.5-11.0)
[2023-05-24 17:13] LABS: CALCIUM, TOTAL 9.3 mg/dL (8.8-10.5); CARBON DIOXIDE 28 mmol/L (22-29); CHLORIDE 99 mmol/L (98-107); CREATININE 0.89 mg/dL (0.60-1.30); GLOMERULAR FILTR. RATE CALC > 60 mL/min (>60); GLUCOSE,RANDOM 97 mg/dL (70-110); UREA NITROGEN, BLOOD 9 mg/dL (7-18)
[2023-05-24 17:23] LABS: ALKALINE PHOSPHATASE 66 U/L (46-116); ANION GAP 16 mmol/L (8-16); ASPARTATE AMINOTRANSFERASE 37 U/L (15-37); BILIRUBIN,TOTAL 0.6 mg/dL (0.1-1.0); POTASSIUM 3.3 mmol/L (3.5-5.1); SODIUM SERUM 143 mmol/L (136-145)
[2023-05-24 17:24] LABS: ALANINE AMINOTRANSFERASE 57 U/L (12-78); ALBUMIN 3.7 g/dL (3.4-5.0); LIPASE 16 U/L (16-77); TOTAL PROTEIN, SERUM 7.4 g/dL (6.4-8.2)
[2023-05-24 18:03] VITALS: BP 127/82; PULSE 88; RESP 18
== END 2023-05-24 18:23 | disposition home or self-care (01) ==
LOC: EMS 16:01
DX: R10.33 Periumbilical pain (principal); F20.9 Schizophrenia, unspecified; Z88.8 Allergy status to other drugs, medicaments and biological substances
CPT/HCPCS: 80053; 83690; 85025; 99284

== ENCOUNTER 2023-06-08 15:35 | Emergency (ER) | payer MEDICAID ==
[~2023-06-08] VITALS: Ht 172.7 cm; Wt 97.7 kg
[2023-06-08] MEDS ORDERED: QUET150T15 PO (15:51)
[2023-06-08] MEDS ORDERED: AMLO5TAB66 PO (15:51)
[2023-06-08 16:30] LABS: BASOPHILS % (AUTO) 0.9 % (0.0-2.0); EOSINOPHILS % (AUTO) 0.3 % (1.0-6.0); HEMATOCRIT 45.1 % (41-53); HEMOGLOBIN 15.1 g/dL (13.5-17.5); LYMPHOCYTES # (AUTO) 2.2 K/uL (1.0-4.8); MEAN CORPUSCULAR HEMOGLOBIN 30.5 pg (26.0-34.0); MEAN CORPUSCULAR HGB CONC 33.5 G/dL (31.0-37.0); MEAN CORPUSCULAR VOLUME 91 fL (80-100); MONOCYTES # (AUTO) 0.6 K/uL (0.1-1.0); NEUTROPHILS # (AUTO) 5.8 K/uL (1.8-7.7); NEUTROPHILS % (AUTO) 66.8 % (40.0-70.0); PLATELET COUNT (AUTO) 332 K/uL (150-450); RED BLOOD CELL COUNT(AUTO) 4.96 MIL/uL (4.50-5.90); RED CELL DISTRIBUTION WIDTH 14.1 % (11.5-14.5); WHITE BLOOD COUNT (AUTO) 8.7 K/uL (4.5-11.0)
[2023-06-08 16:37] LABS: ANION GAP 9 mmol/L (8-16); CALCIUM, TOTAL 9.7 mg/dL (8.8-10.5); CARBON DIOXIDE 29 mmol/L (22-29); CHLORIDE 102 mmol/L (98-107); CREATININE 0.92 mg/dL (0.60-1.30); GLOMERULAR FILTR. RATE CALC > 60 mL/min (>60); GLUCOSE,RANDOM 97 mg/dL (70-110); POTASSIUM 3.8 mmol/L (3.5-5.1); SODIUM SERUM 140 mmol/L (136-145); UREA NITROGEN, BLOOD 8 mg/dL (7-18)
[2023-06-08 16:43] LABS: ALANINE AMINOTRANSFERASE 30 U/L (12-78); ALKALINE PHOSPHATASE 69 U/L (46-116); ASPARTATE AMINOTRANSFERASE 20 U/L (15-37); BILIRUBIN,TOTAL 0.2 mg/dL (0.1-1.0); TOTAL PROTEIN, SERUM 7.8 g/dL (6.4-8.2)
[2023-06-08 16:48] LABS: ALCOHOL, BLOOD (SERUM) < 3 mg/dL (0-10)
[2023-06-08] MEDS ORDERED: OLANZapine 5 MG TABLET PO ONE (17:45)
[2023-06-08] MEDS ORDERED: LORazepam 1 MG TABLET PO ONE (17:45)
[2023-06-08 22:48] VITALS: TEMP 97
[2023-06-09 06:58] VITALS: BP 119/75; PULSE 78; RESP 16
== END 2023-06-09 07:05 | disposition home or self-care (01) ==
LOC: EMS 15:35
DX: F20.0 Paranoid schizophrenia (principal); Z88.8 Allergy status to other drugs, medicaments and biological substances
CPT/HCPCS: 99284; 80053; 85025; G0480

== ENCOUNTER 2023-07-14 13:34 | Emergency (ER) | payer MEDICAID ==
[~2023-07-14] VITALS: Ht 172.7 cm; Wt 95.5 kg
[~2023-07-14 13:34] MED LIST changes: +AMLO5TAB66 PO; -BUPR-49 PO; -DIPH25CA85 PO; -HYDR-4527 PO; -OLAN10TA74 PO; -QUET100T34 PO; +QUET150T15 PO; -QUET400T13 PO
[2023-07-14 14:11] VITALS: TEMP 98.8
[2023-07-14 14:32] LABS: BASOPHILS % (AUTO) 0.5 % (0.0-2.0); EOSINOPHILS % (AUTO) 1.8 % (1.0-6.0); HEMATOCRIT 47.5 % (41-53); LYMPHOCYTES # (AUTO) 1.9 K/uL (1.0-4.8); LYMPHOCYTES % (AUTO) 25.4 % (22.0-44.0); MEAN CORPUSCULAR HEMOGLOBIN 30.2 pg (26.0-34.0); MEAN CORPUSCULAR HGB CONC 33.6 G/dL (31.0-37.0); MEAN CORPUSCULAR VOLUME 90 fL (80-100); MONOCYTES # (AUTO) 0.8 K/uL (0.1-1.0); MONOCYTES % (AUTO) 10.5 % (2.0-9.0); NEUTROPHILS # (AUTO) 4.7 K/uL (1.8-7.7); NEUTROPHILS % (AUTO) 61.8 % (40.0-70.0); PLATELET COUNT (AUTO) 316 K/uL (150-450); RED BLOOD CELL COUNT(AUTO) 5.29 MIL/uL (4.50-5.90); RED CELL DISTRIBUTION WIDTH 13.6 % (11.5-14.5); WHITE BLOOD COUNT (AUTO) 7.7 K/uL (4.5-11.0)
[2023-07-14 14:38] LABS: ANION GAP 14 mmol/L (8-16); CALCIUM, TOTAL 9.6 mg/dL (8.8-10.5); CARBON DIOXIDE 25 mmol/L (22-29); CHLORIDE 101 mmol/L (98-107); CREATININE 1.07 mg/dL (0.60-1.30); GLOMERULAR FILTR. RATE CALC > 60 mL/min (>60); GLUCOSE,RANDOM 98 mg/dL (70-110); POTASSIUM 3.5 mmol/L (3.5-5.1); SODIUM SERUM 140 mmol/L (136-145); UREA NITROGEN, BLOOD 19 mg/dL (7-18)
[2023-07-14 14:44] LABS: ALANINE AMINOTRANSFERASE 38 U/L (12-78); ALBUMIN 4.1 g/dL (3.4-5.0); ALKALINE PHOSPHATASE 71 U/L (46-116); ASPARTATE AMINOTRANSFERASE 36 U/L (15-37); BILIRUBIN,TOTAL 0.6 mg/dL (0.1-1.0); TOTAL PROTEIN, SERUM 8.6 g/dL (6.4-8.2)
[2023-07-14 14:56] LABS: ALCOHOL, BLOOD (SERUM) < 3 mg/dL (0-10)
[2023-07-14] MEDS ORDERED: QUEtiapine FUMARATE 100 MG TABLET PO ONE (15:30)
[2023-07-14] MEDS ORDERED: QUET100T PO (16:56)
[2023-07-14 17:27] VITALS: BP 128/80; PULSE 90; RESP 16
== END 2023-07-14 17:28 | disposition home or self-care (01) ==
LOC: EMS 13:35
DX: F20.0 Paranoid schizophrenia (principal); I10 Essential (primary) hypertension; F20.9 Schizophrenia, unspecified; F17.210 Nicotine dependence, cigarettes, uncomplicated; F15.90 Other stimulant use, unspecified, uncomplicated; Z88.8 Allergy status to other drugs, medicaments and biological substances
CPT/HCPCS: 99284; 80053; 85025; 36415; G0480

== ENCOUNTER 2023-07-16 16:33 | Inpatient (IN) | payer MEDICAID ==
[~2023-07-16] VITALS: Ht 172.7 cm; Wt 93.0 kg
[~2023-07-16 16:33] MED LIST changes: +QUET100T PO
[2023-07-16] MEDS ORDERED: ZOLPIDEM TARTRATE 10 MG TABLET PO PRN (17:45)
[2023-07-16] MEDS ORDERED: LORazepam 2 MG TABLET PO PRN (17:45)
[2023-07-16] MEDS ORDERED: OLANZapine 5 MG RAPDIS TABLET PO PRN (17:45)
[2023-07-16] MEDS ORDERED: LORazepam 2 MG TABLET PO ONE (18:00)
[2023-07-16] MEDS ORDERED: OLANZapine 5 MG TABLET PO ONE (18:00)
[2023-07-16 18:28] LABS: COVID AG,FIA SOURCE NASAL SWAB
[2023-07-16 18:55] LABS: SARS-COV2 (COVID) ANTIGEN,FIA Negative (Negative)
[2023-07-16 20:16] LABS: BASOPHILS % (AUTO) 0.7 % (0.0-2.0); EOSINOPHILS % (AUTO) 2.7 % (1.0-6.0); LYMPHOCYTES # (AUTO) 2.5 K/uL (1.0-4.8); MEAN CORPUSCULAR HEMOGLOBIN 29.9 pg (26.0-34.0); MEAN CORPUSCULAR HGB CONC 33.3 G/dL (31.0-37.0); MEAN CORPUSCULAR VOLUME 90 fL (80-100); MONOCYTES # (AUTO) 0.7 K/uL (0.1-1.0); MONOCYTES % (AUTO) 10.3 % (2.0-9.0); NEUTROPHILS % (AUTO) 47.3 % (40.0-70.0); PLATELET COUNT (AUTO) 342 K/uL (150-450); RED BLOOD CELL COUNT(AUTO) 5.34 MIL/uL (4.50-5.90); RED CELL DISTRIBUTION WIDTH 13.7 % (11.5-14.5); WHITE BLOOD COUNT (AUTO) 6.3 K/uL (4.5-11.0)
[2023-07-16 20:29] LABS: ANION GAP 10 mmol/L (8-16); CALCIUM, TOTAL 9.6 mg/dL (8.8-10.5); CARBON DIOXIDE 28 mmol/L (22-29); CHLORIDE 99 mmol/L (98-107); GLOMERULAR FILTR. RATE CALC > 60 mL/min (>60); GLUCOSE,RANDOM 122 mg/dL (70-110); POTASSIUM 3.6 mmol/L (3.5-5.1); SODIUM SERUM 137 mmol/L (136-145); UREA NITROGEN, BLOOD 28 mg/dL (7-18)
[2023-07-16 20:35] LABS: ALANINE AMINOTRANSFERASE 52 U/L (12-78); ALBUMIN 4.2 g/dL (3.4-5.0); ALKALINE PHOSPHATASE 68 U/L (46-116); ASPARTATE AMINOTRANSFERASE 39 U/L (15-37); BILIRUBIN,TOTAL 0.7 mg/dL (0.1-1.0); TOTAL PROTEIN, SERUM 8.6 g/dL (6.4-8.2)
[2023-07-16 20:38] LABS: ALCOHOL, BLOOD (SERUM) < 3 mg/dL (0-10)
[2023-07-17] MEDS ORDERED: INFLUENZA VIRUS VACCINE QVS 2023-24 (6MO+)/PF 60 MCG/0.5 ML SYRINGE IM. ONE (11:45)
[2023-07-17 14:11] VITALS: BP 134/82; PULSE 90; RESP 18; TEMP 97.3; O2SAT 96
[2023-07-17] MEDS ORDERED: MAG HYDROX/ALUMINUM HYD/SIMETH ES 30 ML SUSPENSION UDCUP PO PRN (16:00)
[2023-07-17] MEDS ORDERED: PROMETHAZINE HCL 25 MG TABLET PO PRN (16:00)
[2023-07-17] MEDS ORDERED: LOPERAMIDE HCL 2 MG CAPSULE PO PRN (16:00)
[2023-07-17] MEDS ORDERED: HydrOXYzine PAMOATE 50 MG CAPSULE PO PRN (16:00)
[2023-07-17] MEDS ORDERED: CYANOCOBALAMIN 1,000 MCG/ML VIAL IM ONE (16:00)
[2023-07-17] MEDS ORDERED: ACETAMINOPHEN 325 MG TABLET PO PRN (16:00)
[2023-07-17] MEDS ORDERED: GuaiFENesin/D-METHORPHAN [SUGAR-FREE] 200-20MG/10 ML SYRUP UDCUP PO PRN (16:00)
[2023-07-17] MEDS ORDERED: TUBERCULIN, PURIFIED PROTEIN DERIVATIVE 5 TU/0.1 ML SYRINGE ID ONE (16:00)
[2023-07-17] MEDS ORDERED: MAGNESIUM HYDROXIDE SUSPENSION 30 ML UDCUP PO PRN (16:00)
[2023-07-17] MEDS: THIAMINE 100 MG TABLET PO SCH (16:55)
[2023-07-17 18:18] VITALS: BP 114/76; PULSE 106; RESP 18; TEMP 97.5; O2SAT 100
[2023-07-17] MEDS ORDERED: MELATONIN 5 MG TABLET PO SCH (21:00)
[2023-07-17] MEDS ORDERED: OLANZapine 5 MG RAPDIS TABLET PO SCH (21:00)
[2023-07-17 22:52] VITALS: BP 117/68; PULSE 95; RESP 18; TEMP 96.6; O2SAT 97
[2023-07-18 08:27] LABS: HEMOGLOBIN A1C 5.8 % (3.8-5.6)
[2023-07-18 08:44] LABS: CHOL/HDL RATIO 3.1 (4.2-7.3); FREE T4 (FREE THYROXINE) 1.3 ng/dL (0.76-1.46); THYROID STIMULATING HORMONE 0.66 uIU/mL (0.36-3.74)
[2023-07-18] MEDS: THIAMINE 100 MG TABLET PO SCH ×2 (08:58→16:30)
[2023-07-18] MEDS ORDERED: OMEGA-3/DHA/EPA/FISH OIL 1,000 MG CAPSULE PO SCH (09:00)
[2023-07-18] MEDS ORDERED: PALIPERIDONE PALMITATE 234 MG/1.5 ML SYRINGE IM ONE (09:00)
[2023-07-18] MEDS ORDERED: NALTREXONE HCL 50 MG TABLET PO SCH (09:00)
[2023-07-18] MEDS ORDERED: FOLIC ACID 1 MG TABLET PO SCH (09:00)
[2023-07-18] MEDS ORDERED: FLUoxetine HCL 20 MG CAPSULE PO SCH (09:00)
[2023-07-18] MEDS ORDERED: MULTIVITAMINS WITH MINERALS, THERAPEUTIC TABLET PO SCH (09:00)
[2023-07-18 09:05] VITALS: BP 109/65; PULSE 83; RESP 18; TEMP 98.2; O2SAT 99
[2023-07-18] MEDS ORDERED: FLUO20CA36 PO (15:42)
[2023-07-18] MEDS ORDERED: NALT50TA PO (15:42)
[2023-07-18] MEDS ORDERED: OLAN5TAB94 PO (15:42)
[2023-07-18] MEDS ORDERED: MELA5TAB40 PO (15:42)
[2023-07-18] MEDS ORDERED: OMEG-135 PO (15:42)
[2023-07-22] MEDS ORDERED: PALIPERIDONE PALMITATE 156 MG/ML SYRINGE IM ONE (09:00)
== END 2023-07-18 17:35 | disposition left against medical advice (07) | DRG 750 ==
LOC: EMS 16:33 → B3A 07-17 08:51 → B2S 07-17 17:01
PROVIDERS: ADMIT Psychiatry & Neurology Psychiatry; ATTEND Psychiatry & Neurology Psychiatry
DX: F25.9 Schizoaffective disorder, unspecified (principal); F17.200 Nicotine dependence, unspecified, uncomplicated; F19.10 Other psychoactive substance abuse, uncomplicated; F90.9 Attention-deficit hyperactivity disorder, unspecified type; R73.03 Prediabetes; I10 Essential (primary) hypertension; Z53.21 Procedure and treatment not carried out due to patient leaving prior to being seen by health care provider; Z20.822 Contact with and (suspected) exposure to COVID-19; J44.9 Chronic obstructive pulmonary disease, unspecified; Z79.899 Other long term (current) drug therapy; Z88.8 Allergy status to other drugs, medicaments and biological substances
CPT/HCPCS: 80053; 80061; 83036; 84439; 84443; 85025; 86592; 90686; 99285; G0480; J3420; Q9967

== ENCOUNTER 2023-07-28 12:05 | Emergency (ER) | payer MEDICAID ==
[~2023-07-28] VITALS: Ht 180.3 cm; Wt 84.0 kg
[~2023-07-28 12:05] MED LIST changes: -AMLO5TAB66 PO; +FLUO20CA36 PO; +MELA5TAB40 PO; +NALT50TA PO; +OLAN5TAB94 PO; +OMEG-135 PO; -QUET100T PO; -QUET150T15 PO; -RISPC375 IM
[2023-07-28 12:07] VITALS: TEMP 98.5
[2023-07-28 13:59] VITALS: BP 146/87; PULSE 89; RESP 18
[2023-07-28 14:08] LABS: BASOPHILS % (AUTO) 0.6 % (0.0-2.0); EOSINOPHILS % (AUTO) 1.3 % (1.0-6.0); HEMATOCRIT 44.8 % (41-53); HEMOGLOBIN 15.2 g/dL (13.5-17.5); LYMPHOCYTES # (AUTO) 2.4 K/uL (1.0-4.8); LYMPHOCYTES % (AUTO) 30.6 % (22.0-44.0); MEAN CORPUSCULAR HEMOGLOBIN 30.2 pg (26.0-34.0); MEAN CORPUSCULAR HGB CONC 33.8 G/dL (31.0-37.0); MEAN CORPUSCULAR VOLUME 89 fL (80-100); MONOCYTES # (AUTO) 0.6 K/uL (0.1-1.0); MONOCYTES % (AUTO) 7.2 % (2.0-9.0); NEUTROPHILS # (AUTO) 4.8 K/uL (1.8-7.7); NEUTROPHILS % (AUTO) 60.3 % (40.0-70.0); PLATELET COUNT (AUTO) 352 K/uL (150-450); RED BLOOD CELL COUNT(AUTO) 5.02 MIL/uL (4.50-5.90); RED CELL DISTRIBUTION WIDTH 13.3 % (11.5-14.5); WHITE BLOOD COUNT (AUTO) 7.9 K/uL (4.5-11.0)
[2023-07-28 14:17] LABS: ANION GAP 9 mmol/L (8-16); CALCIUM, TOTAL 8.6 mg/dL (8.8-10.5); CARBON DIOXIDE 27 mmol/L (22-29); CHLORIDE 104 mmol/L (98-107); CREATININE 1.05 mg/dL (0.60-1.30); GLOMERULAR FILTR. RATE CALC > 60 mL/min (>60); GLUCOSE,RANDOM 156 mg/dL (70-110); POTASSIUM 3.5 mmol/L (3.5-5.1); SODIUM SERUM 140 mmol/L (136-145); UREA NITROGEN, BLOOD 11 mg/dL (7-18)
[2023-07-28 14:22] LABS: ALANINE AMINOTRANSFERASE 43 U/L (12-78); ALBUMIN 3.5 g/dL (3.4-5.0); ALKALINE PHOSPHATASE 61 U/L (46-116); ASPARTATE AMINOTRANSFERASE 21 U/L (15-37); BILIRUBIN,TOTAL 0.3 mg/dL (0.1-1.0); TOTAL PROTEIN, SERUM 7.5 g/dL (6.4-8.2)
[2023-07-28 14:35] LABS: ALCOHOL, BLOOD (SERUM) < 3 mg/dL (0-10)
[2023-07-28] MEDS ORDERED: LORazepam 1 MG TABLET PO ONE (15:15)
== END 2023-07-28 15:31 | disposition home or self-care (01) ==
LOC: EMS 12:12
DX: F20.9 Schizophrenia, unspecified (principal); I10 Essential (primary) hypertension; F17.210 Nicotine dependence, cigarettes, uncomplicated; F15.90 Other stimulant use, unspecified, uncomplicated; Z88.8 Allergy status to other drugs, medicaments and biological substances
CPT/HCPCS: 99284; 80053; 85025; G0480

== ENCOUNTER 2023-08-19 08:33 | Emergency (ER) | payer MEDICAID ==
[~2023-08-19] VITALS: Ht 172.7 cm; Wt 95.0 kg
[2023-08-19] MEDS ORDERED: QUET150T15 PO (09:15)
[2023-08-19] MEDS ORDERED: RISPC50 IM (09:15)
[2023-08-19] MEDS ORDERED: BUPR-344 PO (09:15)
[2023-08-19 09:21] VITALS: BP 135/89; PULSE 84; RESP 19; TEMP 98.1
[2023-08-19 09:25] LABS: BASOPHILS % (AUTO) 0.6 % (0.0-2.0); EOSINOPHILS % (AUTO) 0.1 % (1.0-6.0); HEMATOCRIT 44.2 % (41-53); HEMOGLOBIN 15.3 g/dL (13.5-17.5); LYMPHOCYTES # (AUTO) 1.5 K/uL (1.0-4.8); LYMPHOCYTES % (AUTO) 14.1 % (22.0-44.0); MEAN CORPUSCULAR HEMOGLOBIN 30.8 pg (26.0-34.0); MEAN CORPUSCULAR HGB CONC 34.7 G/dL (31.0-37.0); MEAN CORPUSCULAR VOLUME 89 fL (80-100); MONOCYTES # (AUTO) 0.6 K/uL (0.1-1.0); MONOCYTES % (AUTO) 5.4 % (2.0-9.0); NEUTROPHILS # (AUTO) 8.2 K/uL (1.8-7.7); NEUTROPHILS % (AUTO) 79.8 % (40.0-70.0); PLATELET COUNT (AUTO) 353 K/uL (150-450); RED BLOOD CELL COUNT(AUTO) 4.97 MIL/uL (4.50-5.90); RED CELL DISTRIBUTION WIDTH 13.5 % (11.5-14.5); WHITE BLOOD COUNT (AUTO) 10.3 K/uL (4.5-11.0)
[2023-08-19 09:37] LABS: ANION GAP 7 mmol/L (8-16); CALCIUM, TOTAL 9.5 mg/dL (8.8-10.5); CARBON DIOXIDE 30 mmol/L (22-29); CHLORIDE 103 mmol/L (98-107); CREATININE 1.02 mg/dL (0.60-1.30); GLOMERULAR FILTR. RATE CALC > 60 mL/min (>60); GLUCOSE,RANDOM 105 mg/dL (70-110); SODIUM SERUM 140 mmol/L (136-145); UREA NITROGEN, BLOOD 6 mg/dL (7-18)
[2023-08-19 09:47] LABS: ALCOHOL, BLOOD (SERUM) < 3 mg/dL (0-10)
[2023-08-19 09:53] LABS: ALANINE AMINOTRANSFERASE 40 U/L (12-78); ALBUMIN 4.1 g/dL (3.4-5.0); ALKALINE PHOSPHATASE 77 U/L (46-116); ASPARTATE AMINOTRANSFERASE 21 U/L (15-37); BILIRUBIN,TOTAL 0.2 mg/dL (0.1-1.0); TOTAL PROTEIN, SERUM 8.6 g/dL (6.4-8.2)
[2023-08-19] MEDS ORDERED: QUEtiapine FUMARATE 100 MG TABLET PO ONE (10:00)
[2023-08-19 10:04] LABS: COVID AG,FIA SOURCE NASAL SWAB
[2023-08-19 10:35] LABS: SARS-COV2 (COVID) ANTIGEN,FIA Negative (Negative)
== END 2023-08-19 11:01 | disposition home or self-care (01) ==
LOC: EMS 08:33
DX: F20.9 Schizophrenia, unspecified (principal); I10 Essential (primary) hypertension; F17.210 Nicotine dependence, cigarettes, uncomplicated; F15.90 Other stimulant use, unspecified, uncomplicated; Z88.8 Allergy status to other drugs, medicaments and biological substances; Z20.822 Contact with and (suspected) exposure to COVID-19
CPT/HCPCS: 99284; 87426; 80053; 85025; G0480

== ENCOUNTER 2023-09-06 10:59 | Inpatient (IN) | payer MEDICAID ==
[~2023-09-06] VITALS: Ht 172.7 cm; Wt 96.5 kg
[~2023-09-06 10:59] MED LIST changes: +BUPR-344 PO; +QUET150T15 PO; +RISPC50 IM
[2023-09-06] MEDS ORDERED: LORazepam 2 MG/ML VIAL IM ONE (13:15)
[2023-09-06 13:35] LABS: COVID AG,FIA SOURCE NASAL SWAB
[2023-09-06 13:40] LABS: BASOPHILS % (AUTO) 0.9 % (0.0-2.0); EOSINOPHILS % (AUTO) 0.1 % (1.0-6.0); HEMATOCRIT 43.5 % (41-53); HEMOGLOBIN 14.8 g/dL (13.5-17.5); LYMPHOCYTES # (AUTO) 2.1 K/uL (1.0-4.8); LYMPHOCYTES % (AUTO) 18.1 % (22.0-44.0); MEAN CORPUSCULAR HEMOGLOBIN 30.4 pg (26.0-34.0); MEAN CORPUSCULAR VOLUME 89 fL (80-100); MONOCYTES # (AUTO) 0.8 K/uL (0.1-1.0); MONOCYTES % (AUTO) 6.9 % (2.0-9.0); NEUTROPHILS # (AUTO) 8.5 K/uL (1.8-7.7); PLATELET COUNT (AUTO) 351 K/uL (150-450); RED BLOOD CELL COUNT(AUTO) 4.87 MIL/uL (4.50-5.90); WHITE BLOOD COUNT (AUTO) 11.4 K/uL (4.5-11.0)
[2023-09-06 13:48] LABS: ANION GAP 13 mmol/L (8-16); CALCIUM, TOTAL 9.4 mg/dL (8.8-10.5); CARBON DIOXIDE 27 mmol/L (22-29); CHLORIDE 101 mmol/L (98-107); CREATININE 1.07 mg/dL (0.60-1.30); GLOMERULAR FILTR. RATE CALC > 60 mL/min (>60); GLUCOSE,RANDOM 126 mg/dL (70-110); POTASSIUM 3.6 mmol/L (3.5-5.1); SODIUM SERUM 141 mmol/L (136-145); UREA NITROGEN, BLOOD 12 mg/dL (7-18)
[2023-09-06 13:53] LABS: ALANINE AMINOTRANSFERASE 37 U/L (12-78); ALBUMIN 4.6 g/dL (3.4-5.0); ALCOHOL, BLOOD (SERUM) < 3 mg/dL (0-10); ALKALINE PHOSPHATASE 71 U/L (46-116); ASPARTATE AMINOTRANSFERASE 38 U/L (15-37); BILIRUBIN,TOTAL 0.5 mg/dL (0.1-1.0); TOTAL PROTEIN, SERUM 8.8 g/dL (6.4-8.2)
[2023-09-06 13:56] LABS: SARS-COV2 (COVID) ANTIGEN,FIA Negative (Negative)
[2023-09-06 18:13] VITALS: BP 149/116; PULSE 105; RESP 20; TEMP 97.7
[2023-09-06] MEDS ORDERED: INFLUENZA VIRUS VACCINE QVS 2023-24 (6MO+)/PF 60 MCG/0.5 ML SYRINGE IM. ONE (18:45)
[2023-09-06] MEDS: ZOLPIDEM TARTRATE 10 MG TABLET PO PRN (21:07)
[2023-09-06 21:42] VITALS: BP 123/77; PULSE 113; RESP 18; TEMP 97
[2023-09-07] MEDS: LORazepam 2 MG TABLET PO PRN ×4 (00:37→22:30)
[2023-09-07] MEDS ORDERED: LOPERAMIDE HCL 2 MG CAPSULE PO PRN (06:45)
[2023-09-07] MEDS ORDERED: MAGNESIUM HYDROXIDE SUSPENSION 30 ML UDCUP PO PRN (06:45)
[2023-09-07] MEDS ORDERED: MAG HYDROX/ALUMINUM HYD/SIMETH ES 30 ML SUSPENSION UDCUP PO PRN (06:45)
[2023-09-07] MEDS ORDERED: ALBUTEROL SULFATE HFA 90 MCG/PUFF 8 GM INHALER IH PRN (06:45)
[2023-09-07] MEDS ORDERED: ACETAMINOPHEN 325 MG TABLET PO PRN (06:45)
[2023-09-07] MEDS ORDERED: CloNIDine HCL 0.1 MG TABLET PO PRN (06:45)
[2023-09-07] MEDS ORDERED: GuaiFENesin/D-METHORPHAN [SUGAR-FREE] 200-20MG/10 ML SYRUP UDCUP PO PRN (06:45)
[2023-09-07] MEDS ORDERED: ONDANSETRON HCL 4 MG TABLET PO PRN (06:45)
[2023-09-07] MEDS ORDERED: IBUPROFEN 400 MG TABLET PO PRN (06:45)
[2023-09-07] MEDS ORDERED: NICOTINE 14 MG/24 HOUR PATCH TD PRN (06:45)
[2023-09-07] MEDS ORDERED: PETROLATUM,WHITE 28 GM JELLY TP PRN (06:45)
[2023-09-07] MEDS ORDERED: DOCUSATE SODIUM 100 MG CAPSULE PO PRN (06:45)
[2023-09-07] MEDS: AmLODIPine BESYLATE 2.5 MG TABLET PO SCH (08:35)
[2023-09-07] MEDS: OLANZapine 5 MG RAPDIS TABLET PO PRN ×3 (08:35→23:14)
[2023-09-07 08:46] VITALS: BP 126/84; PULSE 94; RESP 18; TEMP 97.5
[2023-09-07] MEDS ORDERED: RisperiDONE ER SUSPENSION 120 MG PRE-FILLED SYRINGE SQ SCH (16:15)
[2023-09-07 20:35] VITALS: RESP 18
[2023-09-07] MEDS: ZOLPIDEM TARTRATE 10 MG TABLET PO PRN (22:30)
[2023-09-08] MEDS: AmLODIPine BESYLATE 2.5 MG TABLET PO SCH (08:13)
[2023-09-08] MEDS: LORazepam 2 MG TABLET PO PRN (15:43)
[2023-09-08 16:30] LABS: HEMOGLOBIN A1C 5.9 % (3.8-5.6)
[2023-09-08 16:56] LABS: THYROID STIMULATING HORMONE 0.7 uIU/mL (0.36-3.74)
[2023-09-08] MEDS: OLANZapine 5 MG RAPDIS TABLET PO PRN (17:17)
[2023-09-08] MEDS: ZOLPIDEM TARTRATE 10 MG TABLET PO PRN (20:08)
[2023-09-08 20:36] VITALS: BP 153/103; PULSE 103; RESP 18; TEMP 97.8
[2023-09-09 07:54] LABS: CHOL/HDL RATIO 2.8 (4.2-7.3)
[2023-09-09] MEDS: LORazepam 2 MG TABLET PO PRN ×2 (09:49→19:31)
[2023-09-09] MEDS: AmLODIPine BESYLATE 2.5 MG TABLET PO SCH (09:49)
[2023-09-09] MEDS: OLANZapine 5 MG RAPDIS TABLET PO PRN ×2 (09:49→19:31)
[2023-09-09 20:44] VITALS: BP 145/81; PULSE 95; RESP 18; TEMP 98.1
[2023-09-09] MEDS: ZOLPIDEM TARTRATE 10 MG TABLET PO PRN (21:27)
[2023-09-10] MEDS: AmLODIPine BESYLATE 2.5 MG TABLET PO SCH (08:16)
[2023-09-10] MEDS: LORazepam 2 MG TABLET PO PRN (08:17)
[2023-09-10] MEDS: OLANZapine 5 MG RAPDIS TABLET PO PRN (08:17)
[2023-09-10] MEDS ORDERED: AMLO2.5T96 PO (11:23)
[2023-09-10] MEDS ORDERED: RISP120S SQ (11:23)
== END 2023-09-10 14:00 | disposition home or self-care (01) | DRG 750 ==
LOC: EMS 10:59 → 3EC 15:24
PROVIDERS: ADMIT Psychiatry & Neurology Psychiatry; ATTEND Psychiatry & Neurology Psychiatry
PROC: GZHZZZZ Group Psychotherapy (ICD-10-PCS; principal; 2023-09-07)
DX: F20.0 Paranoid schizophrenia (principal); D72.829 Elevated white blood cell count, unspecified; F17.210 Nicotine dependence, cigarettes, uncomplicated; R73.9 Hyperglycemia, unspecified; Z20.822 Contact with and (suspected) exposure to COVID-19; F19.10 Other psychoactive substance abuse, uncomplicated; I10 Essential (primary) hypertension; Z88.8 Allergy status to other drugs, medicaments and biological substances
CPT/HCPCS: 80053; 80061; 83036; 84443; 85025; 99285; G0480; J2060; Q9967

== ENCOUNTER 2023-11-14 11:52 | Inpatient (IN) | payer MEDICAID ==
[~2023-11-14] VITALS: Ht 172.7 cm; Wt 98.9 kg
[~2023-11-14 11:52] MED LIST changes: +AMLO2.5T96 PO; -BUPR-344 PO; -FLUO20CA36 PO; -MELA5TAB40 PO; -NALT50TA PO; -OLAN5TAB94 PO; -OMEG-135 PO; -QUET150T15 PO; +RISP120S SQ; -RISPC50 IM
[2023-11-14] MEDS: LORazepam 2 MG TABLET PO ONE (14:03)
[2023-11-14 14:29] LABS: COVID AG,FIA SOURCE NASAL SWAB
[2023-11-14 14:45] LABS: BASOPHILS % (AUTO) 1.1 % (0.0-2.0); EOSINOPHILS % (AUTO) 0.6 % (1.0-6.0); HEMATOCRIT 44.7 % (41-53); HEMOGLOBIN 15.2 g/dL (13.5-17.5); LYMPHOCYTES # (AUTO) 2.5 K/uL (1.0-4.8); LYMPHOCYTES % (AUTO) 26.1 % (22.0-44.0); MEAN CORPUSCULAR HEMOGLOBIN 30.1 pg (26.0-34.0); MEAN CORPUSCULAR HGB CONC 33.9 G/dL (31.0-37.0); MEAN CORPUSCULAR VOLUME 89 fL (80-100); MONOCYTES # (AUTO) 0.9 K/uL (0.1-1.0); MONOCYTES % (AUTO) 9.7 % (2.0-9.0); NEUTROPHILS # (AUTO) 6.1 K/uL (1.8-7.7); NEUTROPHILS % (AUTO) 62.5 % (40.0-70.0); PLATELET COUNT (AUTO) 298 K/uL (150-450); RED BLOOD CELL COUNT(AUTO) 5.04 MIL/uL (4.50-5.90); RED CELL DISTRIBUTION WIDTH 13.5 % (11.5-14.5); WHITE BLOOD COUNT (AUTO) 9.7 K/uL (4.5-11.0)
[2023-11-14 14:50] LABS: ANION GAP 10 mmol/L (8-16); CALCIUM, TOTAL 9.2 mg/dL (8.8-10.5); CARBON DIOXIDE 28 mmol/L (22-29); CHLORIDE 102 mmol/L (98-107); CREATININE 1.19 mg/dL (0.60-1.30); GLOMERULAR FILTR. RATE CALC > 60 mL/min (>60); GLUCOSE,RANDOM 84 mg/dL (70-110); POTASSIUM 3.4 mmol/L (3.5-5.1); SODIUM SERUM 140 mmol/L (136-145); UREA NITROGEN, BLOOD 20 mg/dL (7-18)
[2023-11-14 14:56] LABS: ALANINE AMINOTRANSFERASE 106 U/L (12-78); ALBUMIN 4.2 g/dL (3.4-5.0); ALKALINE PHOSPHATASE 62 U/L (46-116); ASPARTATE AMINOTRANSFERASE 330 U/L (15-37); BILIRUBIN,TOTAL 0.9 mg/dL (0.1-1.0); TOTAL PROTEIN, SERUM 7.9 g/dL (6.4-8.2)
[2023-11-14 14:59] LABS: ALCOHOL, BLOOD (SERUM) < 3 mg/dL (0-10)
[2023-11-14 15:04] LABS: SARS-COV2 (COVID) ANTIGEN,FIA Negative (Negative)
[2023-11-14 22:09] VITALS: BP 107/79; PULSE 111; RESP 18; TEMP 97.4; O2SAT 98
[2023-11-15] MEDS: LORazepam 2 MG TABLET PO PRN (01:13)
[2023-11-15] MEDS: ZOLPIDEM TARTRATE 10 MG TABLET PO PRN (01:13)
[2023-11-15] MEDS: INFLUENZA VIRUS VACCINE QVS 2023-24 (6MO+)/PF 60 MCG/0.5 ML SYRINGE IM. ONE (01:14)
[2023-11-15] MEDS: PNEUMOCOCCAL VACCINE POLYVALENT 0.5 ML SYRINGE [PPSV23] IM. ONE (01:15)
[2023-11-15] MEDS ORDERED: BENZOCAINE/MENTHOL LOZENGE PO PRN (06:00)
[2023-11-15] MEDS ORDERED: LOPERAMIDE HCL 2 MG CAPSULE PO PRN (06:00)
[2023-11-15] MEDS ORDERED: ONDANSETRON HCL 4 MG TABLET PO PRN (06:00)
[2023-11-15] MEDS ORDERED: ACETAMINOPHEN 325 MG TABLET PO PRN (06:00)
[2023-11-15] MEDS ORDERED: DOCUSATE SODIUM 100 MG CAPSULE PO PRN (06:00)
[2023-11-15] MEDS ORDERED: OMEPRAZOLE 20 MG CAPSULE PO PRN (06:00)
[2023-11-15] MEDS ORDERED: PETROLATUM,WHITE 28 GM JELLY TP PRN (06:00)
[2023-11-15] MEDS ORDERED: MAG HYDROX/ALUMINUM HYD/SIMETH ES 30 ML SUSPENSION UDCUP PO PRN (06:00)
[2023-11-15] MEDS ORDERED: BACITRACIN 28 GM OINTMENT TP PRN (06:00)
[2023-11-15] MEDS ORDERED: MAGNESIUM HYDROXIDE SUSPENSION 30 ML UDCUP PO PRN (06:00)
[2023-11-15] MEDS ORDERED: IBUPROFEN 600 MG TABLET PO PRN (06:00)
[2023-11-15] MEDS ORDERED: ALBUTEROL SULFATE HFA 90 MCG/PUFF 8 GM INHALER IH PRN (06:00)
[2023-11-15] MEDS: POTASSIUM CHLORIDE 20 MEQ ER TABLET PO ONE (06:09)
[2023-11-15] MEDS: AmLODIPine BESYLATE 2.5 MG TABLET PO SCH (09:21)
[2023-11-15 09:32] VITALS: BP 100/61; PULSE 109; RESP 18; TEMP 98.3; O2SAT 98
[2023-11-15 22:43] VITALS: RESP 18
[2023-11-16 08:43] VITALS: BP 112/60; PULSE 93; RESP 18; TEMP 98.1; O2SAT 98
[2023-11-16 09:07] LABS: HEPATITIS C AB (EIA) Non Reactive (Non Reactive)
[2023-11-16] MEDS: NICOTINE 21 MG/24 HOUR PATCH TD SCH (15:30)
[2023-11-16] MEDS: RisperiDONE 2 MG TABLET PO SCH (17:28)
[2023-11-16] MEDS: DOXYCYCLINE HYCLATE 100 MG TABLET PO SCH (17:29)
[2023-11-16 23:10] VITALS: BP 128/68; PULSE 94; RESP 17; TEMP 97.8; O2SAT 98
[2023-11-17 08:16] VITALS: BP 124/76; PULSE 110; RESP 18; TEMP 97.9; O2SAT 98
[2023-11-17 20:54] VITALS: BP 159/111; PULSE 109; RESP 18; TEMP 98.2; O2SAT 99
[2023-11-17] MEDS: CloNIDine HCL 0.1 MG TABLET PO PRN (21:49)
[2023-11-17 23:15] VITALS: BP 126/96; PULSE 80; RESP 18; TEMP 97.7; O2SAT 98
[2023-11-18 09:00] VITALS: BP 146/82; PULSE 86; RESP 16; TEMP 98; O2SAT 97
[2023-11-18 20:18] VITALS: BP 130/76; PULSE 85; RESP 19; TEMP 98.6; O2SAT 98
[2023-11-19 08:25] VITALS: BP 142/81; PULSE 79; RESP 18; TEMP 98; O2SAT 99
[2023-11-19 20:36] VITALS: BP 110/75; PULSE 90; RESP 18; TEMP 98; O2SAT 97
[2023-11-20 08:11] VITALS: BP 128/82; PULSE 98; RESP 18; TEMP 98.4; O2SAT 95
[2023-11-20 23:15] VITALS: BP 129/79; PULSE 95; RESP 18; TEMP 97.5; O2SAT 97
[2023-11-21 08:13] VITALS: BP 119/80; PULSE 91; RESP 18; TEMP 97.7; O2SAT 99
[2023-11-21 20:31] VITALS: BP 138/86
[2023-11-22 09:00] VITALS: BP 122/61; PULSE 98; RESP 18; TEMP 98.6; O2SAT 100
[2023-11-22 20:42] VITALS: BP 118/68; PULSE 92; RESP 16; TEMP 98.1; O2SAT 100
[2023-11-23 08:50] VITALS: BP 118/84; PULSE 97; RESP 18; TEMP 97.5; O2SAT 94
[2023-11-23] MEDS ORDERED: RISP1SOL11 PO (16:07)
[2023-11-23] MEDS ORDERED: RISP-32 PO (16:08)
== END 2023-11-23 18:15 | disposition home or self-care (01) | DRG 750 ==
LOC: EMS 11:52 → B3A 17:39
PROVIDERS: ADMIT Psychiatry & Neurology Psychiatry; ATTEND Psychiatry & Neurology Psychiatry
DX: F20.0 Paranoid schizophrenia (principal); E78.5 Hyperlipidemia, unspecified; G47.00 Insomnia, unspecified; I10 Essential (primary) hypertension; F41.9 Anxiety disorder, unspecified; F17.210 Nicotine dependence, cigarettes, uncomplicated; F15.10 Other stimulant abuse, uncomplicated; R74.01 Elevation of levels of liver transaminase levels; Z88.8 Allergy status to other drugs, medicaments and biological substances; Z79.899 Other long term (current) drug therapy
CPT/HCPCS: 80053; 84132; 85025; 86803; 87340; 99285; G0480

== ENCOUNTER 2023-11-27 17:37 | Inpatient (IN) | payer MEDICAID ==
[~2023-11-27] VITALS: Ht 172.7 cm; Wt 95.1 kg
[~2023-11-27 17:37] MED LIST changes: +RISP-32 PO; -RISP120S SQ
[2023-11-27 18:41] LABS: BASOPHILS % (AUTO) 0.5 % (0.0-2.0); EOSINOPHILS % (AUTO) 0.3 % (1.0-6.0); HEMATOCRIT 44.1 % (41-53); HEMOGLOBIN 14.9 g/dL (13.5-17.5); LYMPHOCYTES # (AUTO) 1.5 K/uL (1.0-4.8); LYMPHOCYTES % (AUTO) 16.1 % (22.0-44.0); MEAN CORPUSCULAR HEMOGLOBIN 29.9 pg (26.0-34.0); MEAN CORPUSCULAR HGB CONC 33.7 G/dL (31.0-37.0); MEAN CORPUSCULAR VOLUME 89 fL (80-100); MONOCYTES # (AUTO) 0.7 K/uL (0.1-1.0); MONOCYTES % (AUTO) 7.6 % (2.0-9.0); NEUTROPHILS # (AUTO) 6.8 K/uL (1.8-7.7); NEUTROPHILS % (AUTO) 75.5 % (40.0-70.0); PLATELET COUNT (AUTO) 353 K/uL (150-450); RED BLOOD CELL COUNT(AUTO) 4.98 MIL/uL (4.50-5.90); RED CELL DISTRIBUTION WIDTH 13.1 % (11.5-14.5); WHITE BLOOD COUNT (AUTO) 9.1 K/uL (4.5-11.0)
[2023-11-27 18:45] LABS: COVID AG,FIA SOURCE NASAL SWAB
[2023-11-27 18:48] LABS: ANION GAP 11 mmol/L (8-16); CALCIUM, TOTAL 9.2 mg/dL (8.8-10.5); CARBON DIOXIDE 26 mmol/L (22-29); CHLORIDE 103 mmol/L (98-107); CREATININE 1.03 mg/dL (0.60-1.30); GLOMERULAR FILTR. RATE CALC > 60 mL/min (>60); GLUCOSE,RANDOM 123 mg/dL (70-110); POTASSIUM 3.7 mmol/L (3.5-5.1); SODIUM SERUM 140 mmol/L (136-145); UREA NITROGEN, BLOOD 18 mg/dL (7-18)
[2023-11-27 18:54] LABS: ALANINE AMINOTRANSFERASE 63 U/L (12-78); ALKALINE PHOSPHATASE 59 U/L (46-116); ASPARTATE AMINOTRANSFERASE 41 U/L (15-37); BILIRUBIN,TOTAL 0.4 mg/dL (0.1-1.0); TOTAL PROTEIN, SERUM 8.3 g/dL (6.4-8.2)
[2023-11-27 18:55] LABS: ALCOHOL, BLOOD (SERUM) < 3 mg/dL (0-10)
[2023-11-27 20:00] LABS: SARS-COV2 (COVID) ANTIGEN,FIA Negative (Negative)
[2023-11-27] MEDS: HALOPERIDOL LACTATE 5 MG/ML VIAL IM ONE (23:31)
[2023-11-27] MEDS: LORazepam 2 MG/ML VIAL IM ONE (23:31)
[2023-11-27] MEDS: DiphenhydrAMINE HCL 50 MG/ML VIAL IM ONE (23:32)
[2023-11-28] MEDS: HALOPERIDOL LACTATE 5 MG/ML VIAL IM ONE (10:00)
[2023-11-28] MEDS: LORazepam 2 MG/ML VIAL IM ONE (10:00)
[2023-11-28] MEDS: DiphenhydrAMINE HCL 50 MG/ML VIAL IM ONE (10:00)
[2023-11-28] MEDS ORDERED: HALOPERIDOL 5 MG TABLET PO PRN (18:15)
[2023-11-28 21:32] VITALS: BP 123/71; PULSE 91; RESP 18; TEMP 97.5
[2023-11-29] MEDS ORDERED: BENZOCAINE/MENTHOL LOZENGE PO PRN (07:15)
[2023-11-29] MEDS ORDERED: DOCUSATE SODIUM 100 MG CAPSULE PO PRN (07:15)
[2023-11-29] MEDS ORDERED: ALBUTEROL SULFATE HFA 90 MCG/PUFF 8 GM INHALER IH PRN (07:15)
[2023-11-29] MEDS ORDERED: MAG HYDROX/ALUMINUM HYD/SIMETH ES 30 ML SUSPENSION UDCUP PO PRN (07:15)
[2023-11-29] MEDS ORDERED: LOPERAMIDE HCL 2 MG CAPSULE PO PRN (07:15)
[2023-11-29] MEDS ORDERED: IBUPROFEN 600 MG TABLET PO PRN (07:15)
[2023-11-29] MEDS ORDERED: ONDANSETRON HCL 4 MG TABLET PO PRN (07:15)
[2023-11-29] MEDS ORDERED: CloNIDine HCL 0.1 MG TABLET PO PRN (07:15)
[2023-11-29] MEDS ORDERED: ACETAMINOPHEN 325 MG TABLET PO PRN (07:15)
[2023-11-29] MEDS ORDERED: PETROLATUM,WHITE 28 GM JELLY TP PRN (07:15)
[2023-11-29] MEDS ORDERED: BACITRACIN 28 GM OINTMENT TP PRN (07:15)
[2023-11-29] MEDS ORDERED: OMEPRAZOLE 20 MG CAPSULE PO PRN (07:15)
[2023-11-29] MEDS ORDERED: MAGNESIUM HYDROXIDE SUSPENSION 30 ML UDCUP PO PRN (07:15)
[2023-11-29 09:28] VITALS: BP 140/76; PULSE 83; RESP 18; TEMP 97.6
[2023-11-29] MEDS: AmLODIPine BESYLATE 2.5 MG TABLET PO SCH (11:44)
[2023-11-29 20:27] VITALS: BP 136/83; PULSE 87; RESP 16; TEMP 97.9
[2023-11-29] MEDS: ZOLPIDEM TARTRATE 10 MG TABLET PO PRN (22:04)
[2023-11-30] MEDS: RisperiDONE 3 MG TABLET PO SCH (08:39)
[2023-11-30] MEDS: INFLUENZA VIRUS VACCINE QVS 2023-24 (6MO+)/PF 60 MCG/0.5 ML SYRINGE IM. ONE (13:30)
[2023-11-30 13:41] VITALS: BP 120/68; PULSE 90; RESP 17; TEMP 98
[2023-11-30] MEDS: LORazepam 2 MG TABLET PO PRN (16:32)
[2023-11-30 20:15] VITALS: BP 121/85; PULSE 100; RESP 20; TEMP 97.6
[2023-12-01 10:32] VITALS: BP 133/82; PULSE 94; RESP 18; TEMP 97.7; O2SAT 99
== END 2023-12-01 16:15 | disposition home or self-care (01) | DRG 750 ==
LOC: EMS 17:45 → B2S 11-28 15:51
PROVIDERS: ADMIT Psychiatry & Neurology Psychiatry; ATTEND Psychiatry & Neurology Psychiatry
DX: F20.0 Paranoid schizophrenia (principal); E78.5 Hyperlipidemia, unspecified; F15.10 Other stimulant abuse, uncomplicated; F17.200 Nicotine dependence, unspecified, uncomplicated; Z20.822 Contact with and (suspected) exposure to COVID-19; G47.00 Insomnia, unspecified; I10 Essential (primary) hypertension; Z79.899 Other long term (current) drug therapy
CPT/HCPCS: 80053; 85025; 87081; 99291; G0480; J1200; J1630; J2060

== ENCOUNTER 2023-12-14 19:34 | Emergency (ER) | payer MEDICAID ==
[~2023-12-14] VITALS: Ht 172.7 cm; Wt 97.0 kg
[2023-12-14 20:08] VITALS: TEMP 98.3
[2023-12-14 23:57] VITALS: BP 146/77; PULSE 87; RESP 20
[2023-12-15] MEDS: RisperiDONE 1 MG TABLET PO ONE (00:02)
== END 2023-12-15 01:32 | disposition home or self-care (01) ==
LOC: EMS 19:37
DX: F20.9 Schizophrenia, unspecified (principal); I10 Essential (primary) hypertension; F17.210 Nicotine dependence, cigarettes, uncomplicated; F15.90 Other stimulant use, unspecified, uncomplicated
CPT/HCPCS: 99284; Z7502; Z7610

== ENCOUNTER 2023-12-17 18:21 | Emergency (ER) | payer MEDICAID ==
[~2023-12-17] VITALS: Ht 172.7 cm; Wt 97.7 kg
[2023-12-17 18:45] VITALS: TEMP 97.9
[2023-12-17 19:31] LABS: BASOPHILS % (AUTO) 0.3 % (0.0-2.0); EOSINOPHILS % (AUTO) 0.2 % (1.0-6.0); HEMATOCRIT 44.1 % (41-53); LYMPHOCYTES # (AUTO) 2.6 K/uL (1.0-4.8); LYMPHOCYTES % (AUTO) 21.7 % (22.0-44.0); MEAN CORPUSCULAR HEMOGLOBIN 29.9 pg (26.0-34.0); MEAN CORPUSCULAR HGB CONC 33.9 G/dL (31.0-37.0); MEAN CORPUSCULAR VOLUME 88 fL (80-100); MONOCYTES # (AUTO) 0.9 K/uL (0.1-1.0); MONOCYTES % (AUTO) 7.5 % (2.0-9.0); NEUTROPHILS # (AUTO) 8.4 K/uL (1.8-7.7); NEUTROPHILS % (AUTO) 70.3 % (40.0-70.0); PLATELET COUNT (AUTO) 383 K/uL (150-450); RED BLOOD CELL COUNT(AUTO) 4.99 MIL/uL (4.50-5.90); RED CELL DISTRIBUTION WIDTH 13.5 % (11.5-14.5); WHITE BLOOD COUNT (AUTO) 11.9 K/uL (4.5-11.0)
[2023-12-17 19:33] LABS: ANION GAP 8 mmol/L (8-16); CALCIUM, TOTAL 9.4 mg/dL (8.8-10.5); CARBON DIOXIDE 31 mmol/L (22-29); CHLORIDE 100 mmol/L (98-107); CREATININE 0.98 mg/dL (0.60-1.30); GLOMERULAR FILTR. RATE CALC > 60 mL/min (>60); GLUCOSE,RANDOM 101 mg/dL (70-110); POTASSIUM 4.1 mmol/L (3.5-5.1); SODIUM SERUM 139 mmol/L (136-145); UREA NITROGEN, BLOOD 7 mg/dL (7-18)
[2023-12-17 19:39] LABS: ALANINE AMINOTRANSFERASE 42 U/L (12-78); ALBUMIN 3.9 g/dL (3.4-5.0); ALKALINE PHOSPHATASE 67 U/L (46-116); ASPARTATE AMINOTRANSFERASE 26 U/L (15-37); BILIRUBIN,TOTAL 0.3 mg/dL (0.1-1.0); TOTAL PROTEIN, SERUM 8.2 g/dL (6.4-8.2)
[2023-12-17 20:25] LABS: PH,URINE DRUG SCREEN 6.5 (5.0-8.0)
[2023-12-17 20:30] LABS: ALCOHOL, URINE DRUG SCREEN NEGATIVE (NEGATIVE); AMPHET/METH SCREEN,URINE NEGATIVE (NEGATIVE); BARBITURATE SCREEN, URINE NEGATIVE (NEGATIVE); BENZODIAZEPINES SCREEN,URINE NEGATIVE (NEGATIVE); CANNABINOID SCREEN,URINE NEGATIVE (NEGATIVE); COCAINE SCREEN,URINE NEGATIVE (NEGATIVE); METHADONE SCREEN, URINE NEGATIVE (NEGATIVE); OPIATE SCREEN,URINE NEGATIVE (NEGATIVE); PHENCYCLIDINE SCREEN,URINE NEGATIVE (NEGATIVE)
[2023-12-17 20:37] LABS: TROPONIN I-HIGH SENSITIVITY 6 ng/L (<76)
[2023-12-17 20:50] LABS: ALCOHOL, BLOOD (SERUM) < 3 mg/dL (0-10)
[2023-12-17 21:00] VITALS: BP 132/90; PULSE 85; RESP 18
== END 2023-12-17 22:30 | disposition home or self-care (01) ==
LOC: EMS 20:22
DX: R06.02 Shortness of breath (principal); R42 Dizziness and giddiness; I10 Essential (primary) hypertension; F20.9 Schizophrenia, unspecified; F17.210 Nicotine dependence, cigarettes, uncomplicated; F15.90 Other stimulant use, unspecified, uncomplicated
CPT/HCPCS: 99285; 71045; 80053; 83880; 84484; 85025; 36415; 93005; 80307; G0480

== ENCOUNTER 2023-12-24 18:26 | Emergency (ER) | payer MEDICAID ==
[~2023-12-24] VITALS: Ht 167.6 cm; Wt 97.7 kg
[2023-12-24 19:43] VITALS: BP 122/83; PULSE 85; RESP 16; TEMP 98.1
[2023-12-24 20:25] LABS: BASOPHILS % (AUTO) 0.6 % (0.0-2.0); EOSINOPHILS % (AUTO) 3.6 % (1.0-6.0); HEMATOCRIT 44.2 % (41-53); LYMPHOCYTES # (AUTO) 2.9 K/uL (1.0-4.8); LYMPHOCYTES % (AUTO) 35.5 % (22.0-44.0); MEAN CORPUSCULAR HEMOGLOBIN 29.7 pg (26.0-34.0); MEAN CORPUSCULAR HGB CONC 33.8 G/dL (31.0-37.0); MEAN CORPUSCULAR VOLUME 88 fL (80-100); MONOCYTES # (AUTO) 0.8 K/uL (0.1-1.0); MONOCYTES % (AUTO) 10.1 % (2.0-9.0); NEUTROPHILS # (AUTO) 4.1 K/uL (1.8-7.7); NEUTROPHILS % (AUTO) 50.2 % (40.0-70.0); PLATELET COUNT (AUTO) 311 K/uL (150-450); RED BLOOD CELL COUNT(AUTO) 5.03 MIL/uL (4.50-5.90); RED CELL DISTRIBUTION WIDTH 13.4 % (11.5-14.5); WHITE BLOOD COUNT (AUTO) 8.2 K/uL (4.5-11.0)
[2023-12-24 20:30] LABS: ANION GAP 10 mmol/L (8-16); CALCIUM, TOTAL 8.8 mg/dL (8.8-10.5); CARBON DIOXIDE 28 mmol/L (22-29); CHLORIDE 100 mmol/L (98-107); CREATININE 1.04 mg/dL (0.60-1.30); GLOMERULAR FILTR. RATE CALC > 60 mL/min (>60); GLUCOSE,RANDOM 105 mg/dL (70-110); POTASSIUM 3.5 mmol/L (3.5-5.1); SODIUM SERUM 138 mmol/L (136-145); UREA NITROGEN, BLOOD 18 mg/dL (7-18)
[2023-12-24 20:36] LABS: ALANINE AMINOTRANSFERASE 58 U/L (12-78); ALBUMIN 3.9 g/dL (3.4-5.0); ALKALINE PHOSPHATASE 60 U/L (46-116); ASPARTATE AMINOTRANSFERASE 74 U/L (15-37); BILIRUBIN,TOTAL 0.6 mg/dL (0.1-1.0)
[2023-12-24 20:39] LABS: ALCOHOL, BLOOD (SERUM) < 3 mg/dL (0-10)
[2023-12-24] MEDS: LORazepam 1 MG TABLET PO ONE (22:16)
[2023-12-24] MEDS: RisperiDONE 1 MG TABLET PO ONE (22:16)
== END 2023-12-24 22:39 | disposition home or self-care (01) ==
LOC: EMS 18:27
DX: F20.0 Paranoid schizophrenia (principal); F41.9 Anxiety disorder, unspecified; I10 Essential (primary) hypertension; F17.210 Nicotine dependence, cigarettes, uncomplicated; F15.90 Other stimulant use, unspecified, uncomplicated
CPT/HCPCS: 99283; 80053; 85025; 36415; G0480

== ENCOUNTER 2024-01-29 14:11 | Emergency (ER) | payer MEDICAID ==
[~2024-01-29] VITALS: Ht 172.7 cm; Wt 97.8 kg
[2024-01-29 14:55] VITALS: TEMP 97.7
[2024-01-29 18:15] LABS: BASOPHILS % (AUTO) 1.3 % (0.0-2.0); EOSINOPHILS % (AUTO) 2.7 % (1.0-6.0); HEMATOCRIT 44.8 % (41-53); HEMOGLOBIN 15.1 g/dL (13.5-17.5); LYMPHOCYTES # (AUTO) 2.6 K/uL (1.0-4.8); LYMPHOCYTES % (AUTO) 40.8 % (22.0-44.0); MEAN CORPUSCULAR HEMOGLOBIN 30.1 pg (26.0-34.0); MEAN CORPUSCULAR HGB CONC 33.6 G/dL (31.0-37.0); MEAN CORPUSCULAR VOLUME 90 fL (80-100); MONOCYTES # (AUTO) 0.4 K/uL (0.1-1.0); MONOCYTES % (AUTO) 6.2 % (2.0-9.0); NEUTROPHILS # (AUTO) 3.2 K/uL (1.8-7.7); PLATELET COUNT (AUTO) 305 K/uL (150-450); RED CELL DISTRIBUTION WIDTH 13.6 % (11.5-14.5); WHITE BLOOD COUNT (AUTO) 6.5 K/uL (4.5-11.0)
[2024-01-29 18:22] LABS: ANION GAP 8 mmol/L (8-16); CALCIUM, TOTAL 8.7 mg/dL (8.8-10.5); CARBON DIOXIDE 28 mmol/L (22-29); CHLORIDE 104 mmol/L (98-107); CREATININE 1.05 mg/dL (0.60-1.30); GLOMERULAR FILTR. RATE CALC > 60 mL/min (>60); GLUCOSE,RANDOM 148 mg/dL (70-110); POTASSIUM 4.1 mmol/L (3.5-5.1); SODIUM SERUM 140 mmol/L (136-145); UREA NITROGEN, BLOOD 15 mg/dL (7-18)
[2024-01-29 18:28] LABS: ALANINE AMINOTRANSFERASE 46 U/L (12-78); ALBUMIN 3.5 g/dL (3.4-5.0); ALKALINE PHOSPHATASE 64 U/L (46-116); ASPARTATE AMINOTRANSFERASE 29 U/L (15-37); BILIRUBIN,TOTAL 0.6 mg/dL (0.1-1.0); TOTAL PROTEIN, SERUM 7.5 g/dL (6.4-8.2)
[2024-01-29 18:37] LABS: ALCOHOL, BLOOD (SERUM) < 3 mg/dL (0-10)
[2024-01-29] MEDS: RisperiDONE 1 MG TABLET PO ONE (20:14)
[2024-01-29 20:30] VITALS: BP 111/67; PULSE 72; RESP 16
== END 2024-01-29 20:47 | disposition home or self-care (01) ==
LOC: EMS 14:12
DX: F20.0 Paranoid schizophrenia (principal); I10 Essential (primary) hypertension; F17.210 Nicotine dependence, cigarettes, uncomplicated; F15.90 Other stimulant use, unspecified, uncomplicated
CPT/HCPCS: 99285; 80053; 85025; 36415; G0480

== ENCOUNTER 2024-03-15 10:53 | Inpatient (IN) | payer MEDICAID ==
[~2024-03-15] VITALS: Ht 172.7 cm; Wt 91.6 kg
[2024-03-15] MEDS ORDERED: RISP125S SQ (11:02)
[2024-03-15 11:16] LABS: COVID AG,FIA SOURCE NASAL SWAB
[2024-03-15 11:23] LABS: BASOPHILS % (AUTO) 0.4 % (0.0-2.0); EOSINOPHILS % (AUTO) 0.1 % (1.0-6.0); HEMOGLOBIN 15.3 g/dL (13.5-17.5); LYMPHOCYTES # (AUTO) 1.7 K/uL (1.0-4.8); LYMPHOCYTES % (AUTO) 17.6 % (22.0-44.0); MEAN CORPUSCULAR HEMOGLOBIN 29.7 pg (26.0-34.0); MEAN CORPUSCULAR HGB CONC 33.3 G/dL (31.0-37.0); MEAN CORPUSCULAR VOLUME 89 fL (80-100); MONOCYTES # (AUTO) 0.4 K/uL (0.1-1.0); MONOCYTES % (AUTO) 4.5 % (2.0-9.0); NEUTROPHILS # (AUTO) 7.3 K/uL (1.8-7.7); NEUTROPHILS % (AUTO) 77.4 % (40.0-70.0); PLATELET COUNT (AUTO) 393 K/uL (150-450); RED BLOOD CELL COUNT(AUTO) 5.16 MIL/uL (4.50-5.90); RED CELL DISTRIBUTION WIDTH 13.6 % (11.5-14.5); WHITE BLOOD COUNT (AUTO) 9.4 K/uL (4.5-11.0)
[2024-03-15 11:26] LABS: ANION GAP 11 mmol/L (8-16); CALCIUM, TOTAL 9.7 mg/dL (8.8-10.5); CARBON DIOXIDE 26 mmol/L (22-29); CHLORIDE 106 mmol/L (98-107); CREATININE 1.19 mg/dL (0.60-1.30); GLOMERULAR FILTR. RATE CALC > 60 mL/min (>60); GLUCOSE,RANDOM 182 mg/dL (70-110); POTASSIUM 3.3 mmol/L (3.5-5.1); SODIUM SERUM 143 mmol/L (136-145); UREA NITROGEN, BLOOD 16 mg/dL (7-18)
[2024-03-15 11:34] LABS: ALCOHOL, BLOOD (SERUM) < 3 mg/dL (0-10)
[2024-03-15 11:34] LABS: SARS-COV2 (COVID) ANTIGEN,FIA Negative (Negative)
[2024-03-15] MEDS: HALOPERIDOL 5 MG TABLET PO PRN (13:20)
[2024-03-15] MEDS: LORazepam 2 MG TABLET PO PRN (13:20)
[2024-03-15] MEDS: ZOLPIDEM TARTRATE 10 MG TABLET PO PRN (20:40)
[2024-03-15] MEDS: NICOTINE 14 MG/24 HOUR PATCH TD ONE (20:53)
[2024-03-16 12:13] VITALS: BP 133/73; PULSE 115; RESP 18; TEMP 97.8
[2024-03-16 12:25] VITALS: BP 133/73; PULSE 115; RESP 18; TEMP 97.8; O2SAT 99
[2024-03-16] MEDS ORDERED: QUEtiapine FUMARATE 25 MG TABLET PO PRN (18:00)
[2024-03-16 22:55] VITALS: BP 110/79; PULSE 125; RESP 18; TEMP 97.1
[2024-03-17] MEDS ORDERED: IBUPROFEN 400 MG TABLET PO PRN (06:15)
[2024-03-17] MEDS ORDERED: ACETAMINOPHEN 325 MG TABLET PO PRN (06:15)
[2024-03-17] MEDS ORDERED: LOPERAMIDE HCL 2 MG CAPSULE PO PRN (06:15)
[2024-03-17] MEDS ORDERED: MAG HYDROX/ALUMINUM HYD/SIMETH ES 30 ML SUSPENSION UDCUP PO PRN (06:15)
[2024-03-17] MEDS ORDERED: MAGNESIUM HYDROXIDE SUSPENSION 30 ML UDCUP PO PRN (06:15)
[2024-03-17] MEDS ORDERED: PETROLATUM,WHITE 28 GM JELLY TP PRN (06:15)
[2024-03-17] MEDS ORDERED: NICOTINE 14 MG/24 HOUR PATCH TD PRN (06:15)
[2024-03-17] MEDS ORDERED: GuaiFENesin/D-METHORPHAN [SUGAR-FREE] 200-20MG/10 ML SYRUP UDCUP PO PRN (06:15)
[2024-03-17] MEDS ORDERED: CloNIDine HCL 0.1 MG TABLET PO PRN (06:15)
[2024-03-17] MEDS ORDERED: ONDANSETRON HCL 4 MG TABLET PO PRN (06:15)
[2024-03-17] MEDS ORDERED: DOCUSATE SODIUM 100 MG CAPSULE PO PRN (06:15)
[2024-03-17] MEDS ORDERED: ALBUTEROL SULFATE HFA 90 MCG/PUFF 8 GM INHALER IH PRN (06:15)
[2024-03-17] MEDS: AmLODIPine BESYLATE 2.5 MG TABLET PO SCH (11:58)
[2024-03-17 15:32] VITALS: RESP 17
[2024-03-17] MEDS: RisperiDONE ER SUSPENSION 125 MG/0.35 ML PRE-FILLED SYRINGE SQ SCH (15:56)
[2024-03-17 20:24] VITALS: BP 128/68; PULSE 81; RESP 18; TEMP 97.8
[2024-03-17] MEDS: QUEtiapine FUMARATE 50 MG ER TABLET PO SCH (20:30)
[2024-03-18 07:42] LABS: HEMOGLOBIN A1C 5.8 % (3.8-5.6)
[2024-03-18 07:50] LABS: CHOL/HDL RATIO 2.8 (4.2-7.3); THYROID STIMULATING HORMONE 1.79 uIU/mL (0.36-3.74)
[2024-03-18 09:05] VITALS: BP 138/88; PULSE 74; RESP 18; TEMP 98
[2024-03-18 20:09] VITALS: BP 133/91; PULSE 77; RESP 18; TEMP 97.5
[2024-03-19 08:11] VITALS: BP 127/70; PULSE 88; RESP 18; TEMP 98.1
[2024-03-19] MEDS ORDERED: QUET50TA93 PO (12:58)
[2024-03-19] MEDS ORDERED: RISP125S SQ (12:58)
[2024-03-19] MEDS ORDERED: AMLO2.5T96 PO (16:15)
== END 2024-03-19 17:05 | disposition home or self-care (01) | DRG 750 ==
LOC: EMS 11:05 → 3EI 03-16 14:32
PROVIDERS: ADMIT Psychiatry & Neurology Child & Adolescent Psychiatry; ATTEND Psychiatry & Neurology Child & Adolescent Psychiatry
PROC: GZ52ZZZ Individual Psychotherapy, Cognitive (ICD-10-PCS; principal; 2024-03-16)
DX: F20.0 Paranoid schizophrenia (principal); R45.851 Suicidal ideations; E66.9 Obesity, unspecified; E87.6 Hypokalemia; I10 Essential (primary) hypertension; F17.210 Nicotine dependence, cigarettes, uncomplicated; F41.9 Anxiety disorder, unspecified; G47.00 Insomnia, unspecified; R73.9 Hyperglycemia, unspecified; F15.10 Other stimulant abuse, uncomplicated; Z20.822 Contact with and (suspected) exposure to COVID-19; Z68.30 Body mass index [BMI] 30.0-30.9, adult
CPT/HCPCS: 80048; 80061; 83036; 84132; 84443; 85025; 99285; G0480; Q9967

== ENCOUNTER 2024-04-03 05:32 | Emergency (ER) | payer MEDICAID ==
[~2024-04-03] VITALS: Ht 172.7 cm; Wt 85.9 kg
[~2024-04-03 05:32] MED LIST changes: +QUET50TA93 PO; -RISP-32 PO; +RISP125S SQ
[2024-04-03 05:42] VITALS: TEMP 98.1
[2024-04-03] MEDS: IBUPROFEN 600 MG TABLET PO ONE (06:30)
[2024-04-03] MEDS: METHOCARBAMOL 500 MG TABLET PO ONE (06:30)
[2024-04-03] MEDS: LORazepam 1 MG TABLET PO ONE (06:30)
[2024-04-03 07:15] VITALS: BP 132/91; PULSE 73; RESP 16
[2024-04-03] MEDS ORDERED: IBUP-1492 PO (07:57)
== END 2024-04-03 08:09 | disposition home or self-care (01) ==
LOC: EMS 05:33
DX: S29.012A Strain of muscle and tendon of back wall of thorax, initial encounter (principal); I10 Essential (primary) hypertension; F20.9 Schizophrenia, unspecified; F17.210 Nicotine dependence, cigarettes, uncomplicated; F15.90 Other stimulant use, unspecified, uncomplicated; X58.XXXA Exposure to other specified factors, initial encounter; Y93.89 Activity, other specified; Y92.89 Other specified places as the place of occurrence of the external cause; Y99.8 Other external cause status
CPT/HCPCS: 99284; Z7502; Z7610

== ENCOUNTER 2024-06-01 15:38 | Emergency (ER) | payer MEDICAID ==
[~2024-06-01] VITALS: Ht 172.7 cm; Wt 97.7 kg
[~2024-06-01 15:38] MED LIST changes: +IBUP-1492 PO
[2024-06-01 15:44] VITALS: BP 120/87; PULSE 104; RESP 18; TEMP 98.7; O2SAT 99
[2024-06-01 17:07] LABS: BASOPHILS % (AUTO) 0.7 % (0.0-2.0); EOSINOPHILS % (AUTO) 0.8 % (1.0-6.0); HEMATOCRIT 46.8 % (41-53); HEMOGLOBIN 15.7 g/dL (13.5-17.5); LYMPHOCYTES # (AUTO) 2.6 K/uL (1.0-4.8); LYMPHOCYTES % (AUTO) 25.4 % (22.0-44.0); MEAN CORPUSCULAR HEMOGLOBIN 29.7 pg (26.0-34.0); MEAN CORPUSCULAR HGB CONC 33.4 G/dL (31.0-37.0); MEAN CORPUSCULAR VOLUME 89 fL (80-100); MONOCYTES % (AUTO) 9.3 % (2.0-9.0); NEUTROPHILS # (AUTO) 6.6 K/uL (1.8-7.7); NEUTROPHILS % (AUTO) 63.8 % (40.0-70.0); PLATELET COUNT (AUTO) 383 K/uL (150-450); RED BLOOD CELL COUNT(AUTO) 5.27 MIL/uL (4.50-5.90); RED CELL DISTRIBUTION WIDTH 13.8 % (11.5-14.5); WHITE BLOOD COUNT (AUTO) 10.4 K/uL (4.5-11.0)
[2024-06-01 17:17] LABS: ANION GAP 11 mmol/L (8-16); CALCIUM, TOTAL 9.4 mg/dL (8.8-10.5); CARBON DIOXIDE 26 mmol/L (22-29); CHLORIDE 104 mmol/L (98-107); GLOMERULAR FILTR. RATE CALC > 60 mL/min (>60); GLUCOSE,RANDOM 102 mg/dL (70-110); POTASSIUM 3.6 mmol/L (3.5-5.1); SODIUM SERUM 141 mmol/L (136-145); UREA NITROGEN, BLOOD 23 mg/dL (7-18)
[2024-06-01 17:25] LABS: ALCOHOL, BLOOD (SERUM) < 3 mg/dL (0-10)
[2024-06-01 19:42] LABS: COVID AG,FIA SOURCE NASAL SWAB
[2024-06-01 20:05] LABS: SARS-COV2 (COVID) ANTIGEN,FIA Negative (Negative)
[2024-06-01] MEDS: OLANZapine 5 MG RAPDIS TABLET PO ONE (23:20)
== END 2024-06-02 01:15 | disposition left against medical advice (07) ==
LOC: EMS 15:38
DX: F20.9 Schizophrenia, unspecified (principal); I10 Essential (primary) hypertension; F17.210 Nicotine dependence, cigarettes, uncomplicated; F15.10 Other stimulant abuse, uncomplicated; Z20.822 Contact with and (suspected) exposure to COVID-19
CPT/HCPCS: 99284; 99406; 87426; 80048; 85025; 36415; G0480

== ENCOUNTER 2024-07-02 07:21 | Emergency (ER) | payer MEDICAID ==
[~2024-07-02] VITALS: Ht 172.7 cm; Wt 95.5 kg
[2024-07-02 07:33] VITALS: BP 137/79; PULSE 86; RESP 18; TEMP 98.2; O2SAT 99
== END 2024-07-02 08:12 | disposition home or self-care (01) ==
LOC: EMS 07:21
DX: F20.9 Schizophrenia, unspecified (principal); M79.18 Myalgia, other site; I10 Essential (primary) hypertension; F17.210 Nicotine dependence, cigarettes, uncomplicated
CPT/HCPCS: 99282; Z7502

== ENCOUNTER 2024-07-03 01:22 | Inpatient (IN) | payer MEDICAID ==
[2024-07-03] MEDS ORDERED: LORazepam 2 MG TABLET PO PRN (02:45)
[2024-07-03] MEDS ORDERED: HALOPERIDOL 5 MG TABLET PO PRN (02:45)
[2024-07-03 14:04] VITALS: BP 142/84; PULSE 86; RESP 18; TEMP 97.5; O2SAT 98
[2024-07-03] MEDS ORDERED: INFLUENZA VIRUS VACCINE TVS (6MO+) 2024-25/PF 45 MCG/0.5 ML SYRINGE IM. ONE (14:15)
[2024-07-03 20:33] VITALS: BP 105/62; PULSE 85; RESP 18; TEMP 96.9; O2SAT 100
[2024-07-04] MEDS ORDERED: PETROLATUM,WHITE 28 GM JELLY TP PRN (15:00)
[2024-07-04] MEDS ORDERED: MAGNESIUM HYDROXIDE SUSPENSION 30 ML UDCUP PO PRN (15:00)
[2024-07-04] MEDS ORDERED: ACETAMINOPHEN 325 MG TABLET PO PRN (15:00)
[2024-07-04] MEDS ORDERED: BACITRACIN 28 GM OINTMENT TP PRN (15:00)
[2024-07-04] MEDS ORDERED: MAG HYDROX/ALUMINUM HYD/SIMETH ES 30 ML SUSPENSION UDCUP PO PRN (15:00)
[2024-07-04] MEDS ORDERED: DOCUSATE SODIUM 100 MG CAPSULE PO PRN (15:00)
[2024-07-04] MEDS ORDERED: ALBUTEROL SULFATE HFA 90 MCG/PUFF 8 GM INHALER IH PRN (15:00)
[2024-07-04] MEDS ORDERED: LOPERAMIDE HCL 2 MG CAPSULE PO PRN (15:00)
[2024-07-04] MEDS ORDERED: ONDANSETRON 4 MG TABLET PO PRN (15:00)
[2024-07-04] MEDS ORDERED: CloNIDine HCL 0.1 MG TABLET PO PRN (15:00)
[2024-07-04] MEDS ORDERED: IBUPROFEN 600 MG TABLET PO PRN (15:00)
[2024-07-04] MEDS ORDERED: BENZOCAINE/MENTHOL LOZENGE PO PRN (15:00)
[2024-07-04] MEDS ORDERED: OMEPRAZOLE 20 MG CAPSULE PO PRN (15:00)
[2024-07-04 15:25] VITALS: BP 123/74; PULSE 71; RESP 17; TEMP 96.5; O2SAT 100
[2024-07-04] MEDS: RisperiDONE MICROSPHERES 50 MG/2 ML SYRINGE IM SCH (15:49)
[2024-07-04 20:33] VITALS: BP 127/89; PULSE 78; RESP 16; TEMP 97.5; O2SAT 94
[2024-07-05 08:26] VITALS: BP 132/78; PULSE 87; RESP 18; TEMP 97.3; O2SAT 98
[2024-07-05] MEDS: ZOLPIDEM TARTRATE 10 MG TABLET PO PRN (20:10)
[2024-07-05 20:18] VITALS: BP 143/79; PULSE 85; RESP 16; TEMP 97.4; O2SAT 98
[2024-07-06 08:12] VITALS: BP 122/71; PULSE 59; RESP 17; TEMP 98.4; O2SAT 97
[2024-07-06 21:18] VITALS: BP 125/84; PULSE 73; RESP 18; TEMP 98.3; O2SAT 99
[2024-07-07 08:34] VITALS: BP 114/67; PULSE 64; RESP 19; TEMP 97.6; O2SAT 99
[2024-07-08 02:07] LABS: HEPATITIS C AB (EIA) Non Reactive (Non Reactive)
[2024-07-08] MEDS ORDERED: RISPC50 IM (09:06)
[2024-07-08 09:08] VITALS: BP 118/63; PULSE 87; RESP 18; TEMP 97.5; O2SAT 99
== END 2024-07-08 10:48 | disposition home or self-care (01) | DRG 750 ==
LOC: B2S 11:24
PROVIDERS: ADMIT Psychiatry & Neurology Psychiatry; ATTEND Psychiatry & Neurology Psychiatry
DX: F20.9 Schizophrenia, unspecified (principal); E78.5 Hyperlipidemia, unspecified; F41.9 Anxiety disorder, unspecified; G47.00 Insomnia, unspecified; F17.200 Nicotine dependence, unspecified, uncomplicated
CPT/HCPCS: 86803; 87340; J2794

== ENCOUNTER 2024-07-03 08:45 | Emergency (ER) | payer MEDICAID ==
[~2024-07-03] VITALS: Ht 170.2 cm; Wt 90.9 kg
[2024-07-03 09:50] LABS: COVID AG,FIA SOURCE NASAL SWAB
[2024-07-03 09:53] LABS: HEMATOCRIT 43.9 % (41-53); HEMOGLOBIN 14.6 g/dL (13.5-17.5); LYMPHOCYTES # (AUTO) 2.3 K/uL (1.0-4.8); LYMPHOCYTES % (AUTO) 25.8 % (22.0-44.0); MEAN CORPUSCULAR HEMOGLOBIN 29.8 pg (26.0-34.0); MEAN CORPUSCULAR HGB CONC 33.2 G/dL (31.0-37.0); MEAN CORPUSCULAR VOLUME 90 fL (80-100); MONOCYTES # (AUTO) 0.8 K/uL (0.1-1.0); MONOCYTES % (AUTO) 8.7 % (2.0-9.0); NEUTROPHILS # (AUTO) 5.7 K/uL (1.8-7.7); NEUTROPHILS % (AUTO) 63.5 % (40.0-70.0); PLATELET COUNT (AUTO) 386 K/uL (150-450); RED BLOOD CELL COUNT(AUTO) 4.88 MIL/uL (4.50-5.90); RED CELL DISTRIBUTION WIDTH 13.7 % (11.5-14.5)
[2024-07-03 10:04] LABS: ANION GAP 7 mmol/L (8-16); CALCIUM, TOTAL 8.9 mg/dL (8.8-10.5); CARBON DIOXIDE 29 mmol/L (22-29); CHLORIDE 105 mmol/L (98-107); GLOMERULAR FILTR. RATE CALC > 60 mL/min (>60); GLUCOSE,RANDOM 83 mg/dL (70-110); POTASSIUM 3.5 mmol/L (3.5-5.1); SODIUM SERUM 141 mmol/L (136-145); UREA NITROGEN, BLOOD 19 mg/dL (7-18)
[2024-07-03 10:10] LABS: ALANINE AMINOTRANSFERASE 24 U/L (12-78); ALBUMIN 3.6 g/dL (3.4-5.0); ALKALINE PHOSPHATASE 68 U/L (46-116); ASPARTATE AMINOTRANSFERASE 22 U/L (15-37); BILIRUBIN,TOTAL 0.4 mg/dL (0.1-1.0); TOTAL PROTEIN, SERUM 7.2 g/dL (6.4-8.2)
[2024-07-03 10:11] LABS: SARS-COV2 (COVID) ANTIGEN,FIA Negative (Negative)
[2024-07-03 10:14] LABS: ALCOHOL, BLOOD (SERUM) < 3 mg/dL (0-10)
[2024-07-03 11:06] VITALS: BP 101/56; PULSE 75; RESP 14; TEMP 97.1; O2SAT 98
== END 2024-07-03 11:21 ==
LOC: EMS 08:45
DX: F20.9 Schizophrenia, unspecified (principal); I10 Essential (primary) hypertension; F17.210 Nicotine dependence, cigarettes, uncomplicated; F15.10 Other stimulant abuse, uncomplicated; Z65.3 Problems related to other legal circumstances; Z20.822 Contact with and (suspected) exposure to COVID-19
CPT/HCPCS: 99285; 99406; 87426; 80048; 80076; 85025; 36415; G0480

== ENCOUNTER 2024-07-17 05:47 | Emergency (ER) | payer MEDICAID ==
[~2024-07-17] VITALS: Ht 172.7 cm; Wt 95.5 kg
[~2024-07-17 05:47] MED LIST changes: -AMLO2.5T96 PO; -IBUP-1492 PO; -QUET50TA93 PO; -RISP125S SQ; +RISPC50 IM
[2024-07-17 06:00] VITALS: BP 131/87; PULSE 86; RESP 14; TEMP 98.9; O2SAT 100
[2024-07-17 06:44] LABS: ANION GAP 10 mmol/L (8-16); CALCIUM, TOTAL 8.1 mg/dL (8.8-10.5); CARBON DIOXIDE 25 mmol/L (22-29); CHLORIDE 106 mmol/L (98-107); GLOMERULAR FILTR. RATE CALC > 60 mL/min (>60); GLUCOSE,RANDOM 113 mg/dL (70-110); POTASSIUM 3.9 mmol/L (3.5-5.1); SODIUM SERUM 141 mmol/L (136-145); UREA NITROGEN, BLOOD 16 mg/dL (7-18)
[2024-07-17 06:45] LABS: EOSINOPHILS % (AUTO) 2.6 % (1.0-6.0); HEMATOCRIT 42.2 % (41-53); HEMOGLOBIN 14.2 g/dL (13.5-17.5); LYMPHOCYTES # (AUTO) 2.4 K/uL (1.0-4.8); MEAN CORPUSCULAR HEMOGLOBIN 29.7 pg (26.0-34.0); MEAN CORPUSCULAR HGB CONC 33.6 G/dL (31.0-37.0); MEAN CORPUSCULAR VOLUME 88 fL (80-100); MONOCYTES # (AUTO) 0.6 K/uL (0.1-1.0); MONOCYTES % (AUTO) 9.4 % (2.0-9.0); NEUTROPHILS # (AUTO) 3.3 K/uL (1.8-7.7); PLATELET COUNT (AUTO) 357 K/uL (150-450); RED BLOOD CELL COUNT(AUTO) 4.78 MIL/uL (4.50-5.90); RED CELL DISTRIBUTION WIDTH 12.9 % (11.5-14.5); WHITE BLOOD COUNT (AUTO) 6.6 K/uL (4.5-11.0)
[2024-07-17 06:54] LABS: ALCOHOL, BLOOD (SERUM) < 3 mg/dL (0-10)
[2024-07-17 07:37] LABS: ALCOHOL, URINE DRUG SCREEN NEGATIVE (NEGATIVE); AMPHET/METH SCREEN,URINE POSITIVE (NEGATIVE); BARBITURATE SCREEN, URINE NEGATIVE (NEGATIVE); BENZODIAZEPINES SCREEN,URINE NEGATIVE (NEGATIVE); CANNABINOID SCREEN,URINE NEGATIVE (NEGATIVE); COCAINE SCREEN,URINE NEGATIVE (NEGATIVE); METHADONE SCREEN, URINE NEGATIVE (NEGATIVE); OPIATE SCREEN,URINE NEGATIVE (NEGATIVE); PHENCYCLIDINE SCREEN,URINE NEGATIVE (NEGATIVE)
[2024-07-17 07:44] LABS: COVID AG,FIA SOURCE NASAL SWAB
[2024-07-17 08:11] LABS: SARS-COV2 (COVID) ANTIGEN,FIA Negative (Negative)
== END 2024-07-17 08:08 | disposition home or self-care (01) ==
LOC: EMS 05:49
DX: F20.9 Schizophrenia, unspecified (principal); I10 Essential (primary) hypertension; F17.210 Nicotine dependence, cigarettes, uncomplicated; F15.90 Other stimulant use, unspecified, uncomplicated; Z20.822 Contact with and (suspected) exposure to COVID-19
CPT/HCPCS: 99283; 87426; 80048; 85025; 36415; 80307; G0480

== ENCOUNTER 2024-07-19 00:42 | Emergency (ER) | payer MEDICAID ==
[~2024-07-19] VITALS: Ht 165.1 cm; Wt 70.0 kg
[2024-07-19 01:28] VITALS: TEMP 97.8
[2024-07-19 05:44] VITALS: BP 130/74; PULSE 70; RESP 16; O2SAT 100
[2024-07-19 07:14] LABS: BASOPHILS % (AUTO) 1.1 % (0.0-2.0); EOSINOPHILS % (AUTO) 2.4 % (1.0-6.0); HEMATOCRIT 45.1 % (41-53); HEMOGLOBIN 15.3 g/dL (13.5-17.5); LYMPHOCYTES # (AUTO) 2.4 K/uL (1.0-4.8); LYMPHOCYTES % (AUTO) 33.7 % (22.0-44.0); MEAN CORPUSCULAR HGB CONC 33.9 G/dL (31.0-37.0); MEAN CORPUSCULAR VOLUME 89 fL (80-100); MONOCYTES # (AUTO) 0.5 K/uL (0.1-1.0); MONOCYTES % (AUTO) 6.9 % (2.0-9.0); NEUTROPHILS % (AUTO) 55.9 % (40.0-70.0); PLATELET COUNT (AUTO) 341 K/uL (150-450); RED BLOOD CELL COUNT(AUTO) 5.09 MIL/uL (4.50-5.90); RED CELL DISTRIBUTION WIDTH 12.8 % (11.5-14.5); WHITE BLOOD COUNT (AUTO) 7.2 K/uL (4.5-11.0)
[2024-07-19 07:20] LABS: ANION GAP 9 mmol/L (8-16); CALCIUM, TOTAL 8.6 mg/dL (8.8-10.5); CARBON DIOXIDE 28 mmol/L (22-29); CHLORIDE 105 mmol/L (98-107); CREATININE 0.83 mg/dL (0.60-1.30); GLOMERULAR FILTR. RATE CALC > 60 mL/min (>60); GLUCOSE,RANDOM 92 mg/dL (70-110); POTASSIUM 3.6 mmol/L (3.5-5.1); SODIUM SERUM 142 mmol/L (136-145); UREA NITROGEN, BLOOD 14 mg/dL (7-18)
[2024-07-19 07:36] LABS: ALCOHOL, BLOOD (SERUM) < 3 mg/dL (0-10)
== END 2024-07-19 07:25 | disposition home or self-care (01) ==
LOC: EMS 00:42
DX: F41.9 Anxiety disorder, unspecified (principal); F20.9 Schizophrenia, unspecified; I10 Essential (primary) hypertension; F17.210 Nicotine dependence, cigarettes, uncomplicated; F15.90 Other stimulant use, unspecified, uncomplicated
CPT/HCPCS: 99283; 80048; 85025; G0480

== ENCOUNTER 2024-07-21 06:01 | Emergency (ER) | payer MEDICAID ==
[~2024-07-21] VITALS: Ht 170.2 cm; Wt 75.0 kg
[2024-07-21 07:17] VITALS: TEMP 98.8
[2024-07-21] MEDS: ACETAMINOPHEN 500 MG TABLET PO ONE (07:55)
[2024-07-21] MEDS: KETOROLAC TROMETHAMINE 30 MG/ML VIAL IM ONE (07:56)
[2024-07-21 10:45] VITALS: BP 136/91; PULSE 84; RESP 16; O2SAT 99
== END 2024-07-21 10:53 | disposition home or self-care (01) ==
LOC: EMS 06:02
DX: R52 Pain, unspecified (principal); I10 Essential (primary) hypertension; F20.9 Schizophrenia, unspecified; F17.210 Nicotine dependence, cigarettes, uncomplicated; F15.90 Other stimulant use, unspecified, uncomplicated
CPT/HCPCS: 99283; 96372; J1885

== ENCOUNTER 2024-08-16 01:51 | Emergency (ER) | payer MEDICAID ==
[~2024-08-16] VITALS: Ht 172.7 cm; Wt 100.0 kg
[2024-08-16 02:05] VITALS: BP 145/95; PULSE 80; RESP 18; TEMP 97.7; O2SAT 99
[2024-08-16 04:48] LABS: EOSINOPHILS % (AUTO) 1.7 % (1.0-6.0); HEMOGLOBIN 15.3 g/dL (13.5-17.5); LYMPHOCYTES # (AUTO) 2.6 K/uL (1.0-4.8); LYMPHOCYTES % (AUTO) 25.7 % (22.0-44.0); MEAN CORPUSCULAR HEMOGLOBIN 30.6 pg (26.0-34.0); MEAN CORPUSCULAR HGB CONC 33.9 G/dL (31.0-37.0); MEAN CORPUSCULAR VOLUME 90 fL (80-100); MONOCYTES # (AUTO) 0.7 K/uL (0.1-1.0); MONOCYTES % (AUTO) 6.6 % (2.0-9.0); NEUTROPHILS # (AUTO) 6.5 K/uL (1.8-7.7); PLATELET COUNT (AUTO) 340 K/uL (150-450); RED BLOOD CELL COUNT(AUTO) 4.99 MIL/uL (4.50-5.90); RED CELL DISTRIBUTION WIDTH 13.7 % (11.5-14.5)
[2024-08-16 04:59] LABS: ALCOHOL, BLOOD (SERUM) < 3 mg/dL (0-10)
[2024-08-16 05:00] LABS: CALCIUM, TOTAL 8.7 mg/dL (8.8-10.5); CARBON DIOXIDE 28 mmol/L (22-29); CREATININE 0.87 mg/dL (0.60-1.30); GLOMERULAR FILTR. RATE CALC > 60 mL/min (>60); GLUCOSE,RANDOM 101 mg/dL (70-110); UREA NITROGEN, BLOOD 8 mg/dL (7-18)
[2024-08-16] MEDS: IBUPROFEN 600 MG TABLET PO ONE (05:06)
[2024-08-16 05:07] LABS: ANION GAP 11 mmol/L (8-16); CHLORIDE 103 mmol/L (98-107); POTASSIUM 3.2 mmol/L (3.5-5.1); SODIUM SERUM 142 mmol/L (136-145)
== END 2024-08-16 05:09 | disposition home or self-care (01) ==
LOC: EMS 01:51
DX: M25.511 Pain in right shoulder (principal); F20.9 Schizophrenia, unspecified; I10 Essential (primary) hypertension; F17.210 Nicotine dependence, cigarettes, uncomplicated
CPT/HCPCS: 99283; 80048; 85025; G0480

== ENCOUNTER 2024-08-27 20:56 | Inpatient (IN) | payer MEDICAID ==
[~2024-08-27] VITALS: Ht 172.7 cm; Wt 86.2 kg
[2024-08-27 21:35] VITALS: O2SAT 100
[2024-08-28 00:02] LABS: EOSINOPHILS % (AUTO) 1.2 % (1.0-6.0); HEMATOCRIT 45.9 % (41-53); HEMOGLOBIN 15.3 g/dL (13.5-17.5); LYMPHOCYTES % (AUTO) 31.3 % (22.0-44.0); MEAN CORPUSCULAR HEMOGLOBIN 29.9 pg (26.0-34.0); MEAN CORPUSCULAR HGB CONC 33.4 G/dL (31.0-37.0); MEAN CORPUSCULAR VOLUME 90 fL (80-100); MONOCYTES # (AUTO) 0.8 K/uL (0.1-1.0); MONOCYTES % (AUTO) 8.7 % (2.0-9.0); NEUTROPHILS # (AUTO) 5.6 K/uL (1.8-7.7); NEUTROPHILS % (AUTO) 57.8 % (40.0-70.0); PLATELET COUNT (AUTO) 350 K/uL (150-450); RED BLOOD CELL COUNT(AUTO) 5.12 MIL/uL (4.50-5.90); RED CELL DISTRIBUTION WIDTH 13.7 % (11.5-14.5); WHITE BLOOD COUNT (AUTO) 9.7 K/uL (4.5-11.0)
[2024-08-28 00:13] LABS: ANION GAP 5 mmol/L (8-16); CALCIUM, TOTAL 9.2 mg/dL (8.8-10.5); CARBON DIOXIDE 28 mmol/L (22-29); CHLORIDE 102 mmol/L (98-107); CREATININE 0.88 mg/dL (0.60-1.30); GLOMERULAR FILTR. RATE CALC > 60 mL/min (>60); GLUCOSE,RANDOM 108 mg/dL (70-110); POTASSIUM 3.1 mmol/L (3.5-5.1); SODIUM SERUM 135 mmol/L (136-145); UREA NITROGEN, BLOOD 10 mg/dL (7-18)
[2024-08-28 00:25] LABS: ALCOHOL, BLOOD (SERUM) < 3 mg/dL (0-10)
[2024-08-28] MEDS: POTASSIUM CHLORIDE 20 MEQ ER TABLET PO ONE (00:30)
[2024-08-28 02:09] LABS: COVID AG,FIA SOURCE NASAL SWAB
[2024-08-28 02:22] LABS: SARS-COV2 (COVID) ANTIGEN,FIA Negative (Negative)
[2024-08-28] MEDS ORDERED: LORazepam 2 MG TABLET PO PRN (03:15)
[2024-08-28] MEDS ORDERED: HALOPERIDOL 5 MG TABLET PO PRN (03:15)
[2024-08-28 04:50] VITALS: BP 141/94; PULSE 78; RESP 18; TEMP 97.6; O2SAT 98
[2024-08-28] MEDS ORDERED: ACETAMINOPHEN 325 MG TABLET PO PRN (05:45)
[2024-08-28] MEDS ORDERED: IBUPROFEN 600 MG TABLET PO PRN (05:45)
[2024-08-28] MEDS ORDERED: CloNIDine HCL 0.1 MG TABLET PO PRN (05:45)
[2024-08-28] MEDS ORDERED: BENZOCAINE/MENTHOL LOZENGE PO PRN (05:45)
[2024-08-28] MEDS ORDERED: OMEPRAZOLE 20 MG CAPSULE PO PRN (05:45)
[2024-08-28] MEDS ORDERED: PETROLATUM,WHITE 28 GM JELLY TP PRN (05:45)
[2024-08-28] MEDS ORDERED: MAG HYDROX/ALUMINUM HYD/SIMETH ES 30 ML SUSPENSION UDCUP PO PRN (05:45)
[2024-08-28] MEDS ORDERED: DOCUSATE SODIUM 100 MG CAPSULE PO PRN (05:45)
[2024-08-28] MEDS ORDERED: MAGNESIUM HYDROXIDE SUSPENSION 30 ML UDCUP PO PRN (05:45)
[2024-08-28] MEDS ORDERED: ALBUTEROL SULFATE HFA 90 MCG/PUFF 8 GM INHALER IH PRN (05:45)
[2024-08-28] MEDS ORDERED: BACITRACIN 28 GM OINTMENT TP PRN (05:45)
[2024-08-28] MEDS ORDERED: LOPERAMIDE HCL 2 MG CAPSULE PO PRN (05:45)
[2024-08-28] MEDS ORDERED: ONDANSETRON 4 MG TABLET PO PRN (05:45)
[2024-08-28] MEDS ORDERED: INFLUENZA VIRUS VACCINE TVS (6MO+) 2024-25/PF 45 MCG/0.5 ML SYRINGE IM. ONE (06:00)
[2024-08-28] MEDS: PNEUMOCOCCAL VACCINE POLYVALENT 0.5 ML SYRINGE [PPSV23] IM. ONE (06:23)
[2024-08-28 08:01] VITALS: BP 140/88; PULSE 100; RESP 18; TEMP 98; O2SAT 99
[2024-08-28 09:27] LABS: BASOPHILS % (AUTO) 0.6 % (0.0-2.0); EOSINOPHILS % (AUTO) 1.7 % (1.0-6.0); HEMATOCRIT 46.8 % (41-53); HEMOGLOBIN 15.7 g/dL (13.5-17.5); LYMPHOCYTES # (AUTO) 2.3 K/uL (1.0-4.8); LYMPHOCYTES % (AUTO) 28.2 % (22.0-44.0); MEAN CORPUSCULAR HEMOGLOBIN 30.3 pg (26.0-34.0); MEAN CORPUSCULAR HGB CONC 33.6 G/dL (31.0-37.0); MEAN CORPUSCULAR VOLUME 90 fL (80-100); MONOCYTES # (AUTO) 0.8 K/uL (0.1-1.0); MONOCYTES % (AUTO) 9.5 % (2.0-9.0); NEUTROPHILS # (AUTO) 4.9 K/uL (1.8-7.7); PLATELET COUNT (AUTO) 355 K/uL (150-450); RED BLOOD CELL COUNT(AUTO) 5.19 MIL/uL (4.50-5.90); RED CELL DISTRIBUTION WIDTH 13.9 % (11.5-14.5); WHITE BLOOD COUNT (AUTO) 8.2 K/uL (4.5-11.0)
[2024-08-28 10:32] LABS: HEMOGLOBIN A1C 5.7 % (3.8-5.6)
[2024-08-28 10:45] LABS: ALANINE AMINOTRANSFERASE 29 U/L (12-78); ALBUMIN 3.9 g/dL (3.4-5.0); ALKALINE PHOSPHATASE 84 U/L (46-116); ANION GAP 5 mmol/L (8-16); ASPARTATE AMINOTRANSFERASE 24 U/L (15-37); BILIRUBIN,TOTAL 0.3 mg/dL (0.1-1.0); CALCIUM, TOTAL 9.6 mg/dL (8.8-10.5); CARBON DIOXIDE 30 mmol/L (22-29); CHLORIDE 103 mmol/L (98-107); CREATININE 0.92 mg/dL (0.60-1.30); FREE T4 (FREE THYROXINE) 1.08 ng/dL (0.76-1.46); GLOMERULAR FILTR. RATE CALC > 60 mL/min (>60); GLUCOSE,RANDOM 117 mg/dL (70-110); POTASSIUM 3.7 mmol/L (3.5-5.1); SODIUM SERUM 138 mmol/L (136-145); THYROID STIMULATING HORMONE 0.86 uIU/mL (0.36-3.74); UREA NITROGEN, BLOOD 12 mg/dL (7-18)
[2024-08-28 20:33] VITALS: BP 130/86; PULSE 93; RESP 17; TEMP 97; O2SAT 100
[2024-08-28] MEDS: MIRTAZAPINE 15 MG TABLET PO SCH (21:34)
[2024-08-28] MEDS: QUEtiapine FUMARATE 25 MG TABLET PO SCH (21:34)
[2024-08-29 08:14] VITALS: BP 113/72; PULSE 67; RESP 16; TEMP 98.1; O2SAT 99
[2024-08-29 20:48] VITALS: BP 118/72; PULSE 84; RESP 16; TEMP 97.6; O2SAT 95
[2024-08-30 08:31] VITALS: BP 130/80; PULSE 89; RESP 18; TEMP 98; O2SAT 99
[2024-08-30 20:22] VITALS: BP 131/100; PULSE 100; RESP 19; TEMP 97.7; O2SAT 100
[2024-08-30] MEDS: ZOLPIDEM TARTRATE 10 MG TABLET PO PRN (21:26)
[2024-08-31 08:57] VITALS: BP 129/83; PULSE 92; RESP 18; TEMP 96.8; O2SAT 97
[2024-08-31 20:28] VITALS: BP 131/100; PULSE 100; RESP 18; TEMP 97.7; O2SAT 98
[2024-09-01 09:08] VITALS: BP 122/76; PULSE 93; RESP 18; TEMP 98.1; O2SAT 95
[2024-09-01 12:55] LABS: APPEARANCE,URINE CLEAR (CLEAR); BILIRUBIN,URINE NEGATIVE (NEGATIVE); COLOR,URINE YELLOW (YELLOW); GLUCOSE, URINE (UA) NEGATIVE (NEGATIVE); KETONES,URINE NEGATIVE (NEGATIVE); LEUKOCYTE ESTERASE ,URINE NEGATIVE (NEGATIVE); NITRATE,URINE NEGATIVE (NEGATIVE); OCCULT BLOOD,URINE NEGATIVE (NEGATIVE); PH,URINE 6.5 (5.0-8.0); PH,URINE DRUG SCREEN 6.5 (5.0-8.0); PROTEIN,URINE NEGATIVE (NEGATIVE); SPECIFIC GRAVITIY, URINE 1.028 (1.003-1.030); UROBILINOGEN,URINE <=1.0 mg/dL (<=1.0)
[2024-09-01 13:03] LABS: ALCOHOL, URINE DRUG SCREEN NEGATIVE (NEGATIVE); AMPHET/METH SCREEN,URINE POSITIVE (NEGATIVE); BARBITURATE SCREEN, URINE NEGATIVE (NEGATIVE); BENZODIAZEPINES SCREEN,URINE NEGATIVE (NEGATIVE); CANNABINOID SCREEN,URINE NEGATIVE (NEGATIVE); COCAINE SCREEN,URINE NEGATIVE (NEGATIVE); METHADONE SCREEN, URINE NEGATIVE (NEGATIVE); OPIATE SCREEN,URINE NEGATIVE (NEGATIVE); PHENCYCLIDINE SCREEN,URINE NEGATIVE (NEGATIVE)
[2024-09-01 20:08] VITALS: BP 135/90; PULSE 86; RESP 20; TEMP 97.8; O2SAT 96
[2024-09-02 04:06] LABS: HEPATITIS A ANTIBODY IGM Negative (Negative); HEPATITIS B CORE IGM Negative (Negative); HEPATITIS C AB (EIA) Non Reactive (Non Reactive); HIV 1-2 SCREEN 4TH GEN W/RFLX Non Reactive (Non Reactive)
[2024-09-02 08:36] VITALS: BP 140/80; PULSE 74; RESP 17; TEMP 97.4; O2SAT 96
[2024-09-02] MEDS: MIRTAZAPINE 15 MG TABLET PO SCH (20:10)
[2024-09-02] MEDS: QUEtiapine FUMARATE 100 MG TABLET PO SCH (20:10)
[2024-09-02 20:21] VITALS: BP 134/79; PULSE 76; RESP 18; TEMP 97.3; O2SAT 99
[2024-09-03 08:49] VITALS: BP 124/78; PULSE 82; RESP 17; TEMP 97; O2SAT 97
[2024-09-03] MEDS: QUEtiapine FUMARATE 100 MG TABLET PO SCH (20:06)
[2024-09-03 20:27] VITALS: BP 128/81; PULSE 79; RESP 20; TEMP 98.1; O2SAT 97
[2024-09-04 08:52] VITALS: BP 132/82; PULSE 82; RESP 16; TEMP 97.7; O2SAT 97
[2024-09-04] MEDS ORDERED: MIRT-89 PO ×2 (14:40→15:12)
[2024-09-04] MEDS ORDERED: QUET100T34 PO (14:40)
[2024-09-04] MEDS ORDERED: NALT50TA6 PO (14:40)
[2024-09-04] MEDS ORDERED: QUET100T PO (15:09)
[2024-09-04] MEDS ORDERED: NALT50TA33 PO (15:16)
== END 2024-09-04 16:25 | disposition home or self-care (01) | DRG 750 ==
LOC: EMS 20:58 → B2S 08-28 02:42
PROVIDERS: ADMIT Psychiatry & Neurology Child & Adolescent Psychiatry; ATTEND Psychiatry & Neurology Psychiatry
PROC: GZ56ZZZ Individual Psychotherapy, Supportive (ICD-10-PCS; principal; 2024-08-28)
PROC: GZHZZZZ Group Psychotherapy (ICD-10-PCS; 2024-08-28)
PROC: GZ52ZZZ Individual Psychotherapy, Cognitive (ICD-10-PCS; 2024-08-28)
DX: F25.9 Schizoaffective disorder, unspecified (principal); E78.5 Hyperlipidemia, unspecified; F41.9 Anxiety disorder, unspecified; I10 Essential (primary) hypertension; G47.00 Insomnia, unspecified; F15.90 Other stimulant use, unspecified, uncomplicated; Z59.00 Homelessness unspecified; Z72.0 Tobacco use; Z79.899 Other long term (current) drug therapy; Z20.822 Contact with and (suspected) exposure to COVID-19
CPT/HCPCS: 80048; 80053; 80074; 80307; 81003; 83036; 84439; 84443; 85025; 86592; 87389; 87491; 87591; 99285; G0480

== ENCOUNTER 2024-09-15 03:00 | Emergency (ER) | payer MEDICAID ==
[~2024-09-15] VITALS: Ht 172.7 cm; Wt 100.0 kg
[~2024-09-15 03:00] MED LIST changes: +MIRT-89 PO; +NALT50TA33 PO; +NALT50TA6 PO; +QUET100T PO; +QUET100T34 PO; -RISPC50 IM
[2024-09-15 03:05] VITALS: BP 128/77; PULSE 93; RESP 13; TEMP 98; O2SAT 100
[2024-09-15 03:11] LABS: COVID AG,FIA SOURCE NASAL SWAB
[2024-09-15 03:39] LABS: INFLUENZA TYPE A NEGATIVE FOR TYPE A (NEGATIVE); INFLUENZA TYPE B NEGATIVE FOR TYPE B (NEGATIVE)
[2024-09-15 03:40] LABS: SARS-COV2 (COVID) ANTIGEN,FIA Negative (Negative)
[2024-09-15] MEDS: ACETAMINOPHEN 325 MG TABLET PO ONE (03:53)
[2024-09-15 05:35] LABS: BASOPHILS % (AUTO) 0.7 % (0.0-2.0); EOSINOPHILS % (AUTO) 0.8 % (1.0-6.0); HEMATOCRIT 44.5 % (41-53); HEMOGLOBIN 15.1 g/dL (13.5-17.5); LYMPHOCYTES # (AUTO) 2.6 K/uL (1.0-4.8); LYMPHOCYTES % (AUTO) 39.9 % (22.0-44.0); MEAN CORPUSCULAR HEMOGLOBIN 30.3 pg (26.0-34.0); MEAN CORPUSCULAR HGB CONC 33.9 G/dL (31.0-37.0); MEAN CORPUSCULAR VOLUME 89 fL (80-100); MONOCYTES # (AUTO) 0.5 K/uL (0.1-1.0); MONOCYTES % (AUTO) 7.8 % (2.0-9.0); NEUTROPHILS # (AUTO) 3.3 K/uL (1.8-7.7); NEUTROPHILS % (AUTO) 50.8 % (40.0-70.0); PLATELET COUNT (AUTO) 336 K/uL (150-450); WHITE BLOOD COUNT (AUTO) 6.6 K/uL (4.5-11.0)
[2024-09-15 05:36] LABS: ANION GAP 12 mmol/L (8-16); CALCIUM, TOTAL 9.2 mg/dL (8.8-10.5); CARBON DIOXIDE 28 mmol/L (22-29); CHLORIDE 102 mmol/L (98-107); CREATININE 1.04 mg/dL (0.60-1.30); GLOMERULAR FILTR. RATE CALC > 60 mL/min (>60); GLUCOSE,RANDOM 63 mg/dL (70-110); POTASSIUM 3.1 mmol/L (3.5-5.1); SODIUM SERUM 142 mmol/L (136-145); UREA NITROGEN, BLOOD 16 mg/dL (7-18)
[2024-09-15 05:42] LABS: ALCOHOL, BLOOD (SERUM) < 3 mg/dL (0-10)
== END 2024-09-15 05:53 | disposition home or self-care (01) ==
LOC: EMS 03:01
DX: R52 Pain, unspecified (principal); I10 Essential (primary) hypertension; F20.9 Schizophrenia, unspecified; F17.210 Nicotine dependence, cigarettes, uncomplicated; F15.90 Other stimulant use, unspecified, uncomplicated; R44.0 Auditory hallucinations; Z20.822 Contact with and (suspected) exposure to COVID-19
CPT/HCPCS: 99283; 87426; 80048; 85025; 87804; 36415; G0480

== ENCOUNTER 2024-09-19 15:56 | Emergency (ER) | payer MEDICAID ==
[~2024-09-19] VITALS: Ht 167.6 cm; Wt 81.8 kg
[2024-09-19 16:10] VITALS: TEMP 98.6
[2024-09-19 18:28] VITALS: BP 126/62; PULSE 88; RESP 18; O2SAT 99
== END 2024-09-19 19:34 | disposition left against medical advice (07) ==
LOC: EMS 15:56
DX: R53.1 Weakness (principal); Z53.21 Procedure and treatment not carried out due to patient leaving prior to being seen by health care provider

== ENCOUNTER 2024-10-30 20:01 | Emergency (ER) | payer MEDICAID ==
[~2024-10-30] VITALS: Ht 175.3 cm; Wt 81.0 kg
[2024-10-30 20:04] VITALS: BP 150/80; PULSE 86; RESP 16; TEMP 98.4; O2SAT 100
[2024-10-30 22:52] LABS: PH,URINE DRUG SCREEN 5.5 (5.0-8.0)
[2024-10-30 23:01] LABS: ALCOHOL, URINE DRUG SCREEN NEGATIVE (NEGATIVE); AMPHET/METH SCREEN,URINE POSITIVE (NEGATIVE); BARBITURATE SCREEN, URINE NEGATIVE (NEGATIVE); BENZODIAZEPINES SCREEN,URINE NEGATIVE (NEGATIVE); CANNABINOID SCREEN,URINE NEGATIVE (NEGATIVE); COCAINE SCREEN,URINE NEGATIVE (NEGATIVE); METHADONE SCREEN, URINE NEGATIVE (NEGATIVE); OPIATE SCREEN,URINE NEGATIVE (NEGATIVE); PHENCYCLIDINE SCREEN,URINE NEGATIVE (NEGATIVE)
[2024-10-31] MEDS: BENZTROPINE MESYLATE 2 MG TABLET PO ONE (00:15)
[2024-10-31] MEDS: DiphenhydrAMINE HCL 50 MG/ML VIAL IM ONE (00:15)
[2024-10-31] MEDS: LORazepam 2 MG TABLET PO ONE (00:15)
[2024-10-31] MEDS ORDERED: DIPH50CA37 PO (00:26)
[2024-10-31] MEDS ORDERED: BENZ2TAB84 PO (00:26)
== END 2024-10-31 00:34 | disposition home or self-care (01) ==
LOC: EMS 20:01
DX: F15.10 Other stimulant abuse, uncomplicated (principal); F20.9 Schizophrenia, unspecified; G25.71 Drug induced akathisia; I10 Essential (primary) hypertension; F17.210 Nicotine dependence, cigarettes, uncomplicated; R44.0 Auditory hallucinations
CPT/HCPCS: 99283; 80307; 96372; J1200

== ENCOUNTER 2025-01-04 19:24 | Emergency (ER) | payer MEDICAID ==
[~2025-01-04] VITALS: Ht 172.7 cm; Wt 77.3 kg
[~2025-01-04 19:24] MED LIST changes: +BENZ2TAB84 PO; +DIPH50CA37 PO
[2025-01-04 20:01] LABS: COVID AG,FIA SOURCE NASAL SWAB
[2025-01-04 20:33] LABS: SARS-COV2 (COVID) ANTIGEN,FIA Negative (Negative)
[2025-01-04 20:45] VITALS: BP 131/81; PULSE 74; RESP 16; TEMP 98; O2SAT 100
[2025-01-04 22:27] LABS: ANION GAP 8 mmol/L (8-16); CALCIUM, TOTAL 9.1 mg/dL (8.8-10.5); CARBON DIOXIDE 31 mmol/L (22-29); CHLORIDE 101 mmol/L (98-107); CREATININE 0.81 mg/dL (0.60-1.30); GLOMERULAR FILTR. RATE CALC > 60 mL/min (>60); GLUCOSE,RANDOM 110 mg/dL (70-110); POTASSIUM 3.5 mmol/L (3.5-5.1); SODIUM SERUM 140 mmol/L (136-145); UREA NITROGEN, BLOOD 10 mg/dL (7-18)
[2025-01-04 22:37] LABS: BASOPHILS % (AUTO) 0.9 % (0.0-2.0); EOSINOPHILS % (AUTO) 2.3 % (1.0-6.0); HEMATOCRIT 46.3 % (41-53); HEMOGLOBIN 15.5 g/dL (13.5-17.5); LYMPHOCYTES # (AUTO) 2.3 K/uL (1.0-4.8); MEAN CORPUSCULAR HEMOGLOBIN 30.2 pg (26.0-34.0); MEAN CORPUSCULAR HGB CONC 33.4 G/dL (31.0-37.0); MEAN CORPUSCULAR VOLUME 90 fL (80-100); MONOCYTES # (AUTO) 0.5 K/uL (0.1-1.0); MONOCYTES % (AUTO) 7.4 % (2.0-9.0); NEUTROPHILS # (AUTO) 3.7 K/uL (1.8-7.7); NEUTROPHILS % (AUTO) 55.4 % (40.0-70.0); PLATELET COUNT (AUTO) 304 K/uL (150-450); RED BLOOD CELL COUNT(AUTO) 5.13 MIL/uL (4.50-5.90); RED CELL DISTRIBUTION WIDTH 13.6 % (11.5-14.5); WHITE BLOOD COUNT (AUTO) 6.6 K/uL (4.5-11.0)
[2025-01-05] MEDS: HALOPERIDOL 5 MG TABLET PO ONE (00:07)
[2025-01-05] MEDS: LORazepam 2 MG TABLET PO ONE (00:07)
[2025-01-05] MEDS: DiphenhydrAMINE HCL 25 MG CAPSULE PO ONE (00:07)
== END 2025-01-05 02:07 | disposition admitted as inpatient to this hospital (09) ==
LOC: EMS 19:25 → B2S 01-05 00:24 → UNDOADMIN 01-05 00:24 → EMS 01-05 02:07
DX: F20.0 Paranoid schizophrenia (principal); I10 Essential (primary) hypertension; F17.210 Nicotine dependence, cigarettes, uncomplicated; Z79.899 Other long term (current) drug therapy; Z20.822 Contact with and (suspected) exposure to COVID-19
CPT/HCPCS: 99285; 87426; 80048; 85025; 36415; G0480

== ENCOUNTER → 2025-01-27 | Emergency (ER) | payer MEDICAID ==
[~2025-01-27] VITALS: Ht 172.7 cm; Wt 84.1 kg
[2025-01-27 05:14] VITALS: BP 142/95; PULSE 70; RESP 14; TEMP 97.5; O2SAT 100
[2025-01-27 05:37] LABS: BASOPHILS % (AUTO) 0.7 % (0.0-2.0); EOSINOPHILS % (AUTO) 2.2 % (1.0-6.0); HEMATOCRIT 46.3 % (41-53); HEMOGLOBIN 15.5 g/dL (13.5-17.5); LYMPHOCYTES # (AUTO) 1.8 K/uL (1.0-4.8); MEAN CORPUSCULAR HEMOGLOBIN 29.5 pg (26.0-34.0); MEAN CORPUSCULAR HGB CONC 33.5 G/dL (31.0-37.0); MEAN CORPUSCULAR VOLUME 88 fL (80-100); MONOCYTES # (AUTO) 0.6 K/uL (0.1-1.0); MONOCYTES % (AUTO) 7.5 % (2.0-9.0); NEUTROPHILS # (AUTO) 5.5 K/uL (1.8-7.7); NEUTROPHILS % (AUTO) 67.6 % (40.0-70.0); PLATELET COUNT (AUTO) 326 K/uL (150-450); RED BLOOD CELL COUNT(AUTO) 5.26 MIL/uL (4.50-5.90); RED CELL DISTRIBUTION WIDTH 13.7 % (11.5-14.5); WHITE BLOOD COUNT (AUTO) 8.2 K/uL (4.5-11.0)
[2025-01-27 05:48] LABS: ANION GAP 10 mmol/L (8-16); CALCIUM, TOTAL 8.7 mg/dL (8.8-10.5); CARBON DIOXIDE 26 mmol/L (22-29); CHLORIDE 102 mmol/L (98-107); CREATININE 0.93 mg/dL (0.60-1.30); GLOMERULAR FILTR. RATE CALC > 60 mL/min (>60); GLUCOSE,RANDOM 116 mg/dL (70-110); POTASSIUM 3.9 mmol/L (3.5-5.1); SODIUM SERUM 138 mmol/L (136-145); UREA NITROGEN, BLOOD 17 mg/dL (7-18)
== END | disposition left against medical advice (07) ==
LOC: EMS 04:54
DX: R44.3 Hallucinations, unspecified (principal); Z53.21 Procedure and treatment not carried out due to patient leaving prior to being seen by health care provider
CPT/HCPCS: 36415; 80048; 85025; G0480

== ENCOUNTER 2025-05-19 02:52 | Emergency (ER) | payer MEDICAID | END 2025-05-19 03:38 | disposition left against medical advice (07) | LOC: EMS 02:54 | DX: M79.18 Myalgia, other site (principal); Z53.21 Procedure and treatment not carried out due to patient leaving prior to being seen by health care provider ==

== ENCOUNTER 2025-05-19 04:28 | Emergency (ER) | payer MEDICAID ==
[~2025-05-19] VITALS: Ht 170.2 cm; Wt 81.8 kg
[2025-05-19 04:37] VITALS: BP 133/92; PULSE 77; RESP 18; TEMP 98.3; O2SAT 98
== END 2025-05-19 05:34 | disposition left against medical advice (07) ==
LOC: EMS 04:30
DX: M54.9 Dorsalgia, unspecified (principal); Z53.21 Procedure and treatment not carried out due to patient leaving prior to being seen by health care provider

== ENCOUNTER 2025-06-07 01:09 | Emergency (ER) | payer MEDICAID ==
[~2025-06-07] VITALS: Ht 172.7 cm; Wt 83.2 kg
[2025-06-07 01:27] VITALS: BP 129/83; PULSE 92; RESP 18; TEMP 98.305304; O2SAT 97
[2025-06-07 02:01] LABS: PLATELET COUNT (AUTO) 302 K/uL (150-450); RED BLOOD CELL COUNT(AUTO) 4.93 MIL/uL (4.50-5.90); RED CELL DISTRIBUTION WIDTH 13.5 % (11.5-14.5); WHITE BLOOD COUNT (AUTO) 7.8 K/uL (4.5-11.0)
[2025-06-07 02:10] LABS: CALCIUM, TOTAL 8.8 mg/dL (8.8-10.5); CREATININE 0.77 mg/dL (0.60-1.30); GLOMERULAR FILTR. RATE CALC > 60 mL/min (>60); GLUCOSE,RANDOM 105 mg/dL (70-110); SODIUM SERUM 140 mmol/L (136-145); UREA NITROGEN, BLOOD 17 mg/dL (7-18)
== END 2025-06-07 02:39 | disposition home or self-care (01) ==
LOC: EMS 01:09
DX: F15.10 Other stimulant abuse, uncomplicated (principal); F41.9 Anxiety disorder, unspecified; F20.9 Schizophrenia, unspecified; I10 Essential (primary) hypertension; F17.210 Nicotine dependence, cigarettes, uncomplicated; Z79.899 Other long term (current) drug therapy
CPT/HCPCS: 99284; 80048; 85025; 36415; 93005; G0480

== ENCOUNTER 2025-06-12 07:41 | Inpatient (IN) | payer MEDICAID ==
[~2025-06-12] VITALS: Ht 172.7 cm; Wt 87.7 kg
[2025-06-12 08:11] LABS: APPEARANCE,URINE CLEAR (CLEAR); GLUCOSE, URINE (UA) NEGATIVE (NEGATIVE); LEUKOCYTE ESTERASE ,URINE NEGATIVE (NEGATIVE); NITRATE,URINE NEGATIVE (NEGATIVE); OCCULT BLOOD,URINE NEGATIVE (NEGATIVE); PH,URINE DRUG SCREEN 5.5 (5.0-8.0); SPECIFIC GRAVITIY, URINE 1.010 (1.003-1.030)
[2025-06-12 08:15] LABS: ALCOHOL, URINE DRUG SCREEN NEGATIVE (NEGATIVE); AMPHET/METH SCREEN,URINE POSITIVE (NEGATIVE); BARBITURATE SCREEN, URINE NEGATIVE (NEGATIVE); CANNABINOID SCREEN,URINE NEGATIVE (NEGATIVE); COCAINE SCREEN,URINE NEGATIVE (NEGATIVE); METHADONE SCREEN, URINE NEGATIVE (NEGATIVE)
[2025-06-12 08:19] LABS: PLATELET COUNT (AUTO) 257 K/uL (150-450); RED BLOOD CELL COUNT(AUTO) 4.83 MIL/uL (4.50-5.90); RED CELL DISTRIBUTION WIDTH 13.5 % (11.5-14.5); WHITE BLOOD COUNT (AUTO) 8.0 K/uL (4.5-11.0)
[2025-06-12 08:27] LABS: CALCIUM, TOTAL 7.9 mg/dL (8.8-10.5); CREATININE 0.67 mg/dL (0.60-1.30); GLOMERULAR FILTR. RATE CALC > 60 mL/min (>60); GLUCOSE,RANDOM 114 mg/dL (70-110); SODIUM SERUM 142 mmol/L (136-145); UREA NITROGEN, BLOOD 9 mg/dL (7-18)
[2025-06-12 08:47] LABS: COVID AG,FIA SOURCE NASAL SWAB
[2025-06-12 09:18] LABS: SARS-COV2 (COVID) ANTIGEN,FIA Negative (Negative)
[2025-06-12] MEDS: POTASSIUM CHLORIDE 20 MEQ ER TABLET PO ONE (09:39)
[2025-06-12 10:12] VITALS: O2SAT 98
[2025-06-12 11:50] VITALS: BP 131/85; PULSE 81; RESP 18; TEMP 97.3; O2SAT 100
[2025-06-12] MEDS ORDERED: NICOTINE 21 MG/24 HOUR PATCH TD PRN (13:00)
[2025-06-12 14:17] VITALS: BP 127/80; PULSE 74; RESP 16; TEMP 98; O2SAT 100
[2025-06-12] MEDS: NALTREXONE HCL 50 MG TABLET PO SCH (14:24)
[2025-06-12] MEDS: BENZTROPINE MESYLATE 2 MG TABLET PO SCH (16:43)
[2025-06-12 20:00] VITALS: BP 135/82; PULSE 82; RESP 17; TEMP 97.8; O2SAT 99
[2025-06-12] MEDS ORDERED: ACETAMINOPHEN 325 MG TABLET PO PRN (20:15)
[2025-06-12] MEDS ORDERED: IBUPROFEN 400 MG TABLET PO PRN (20:15)
[2025-06-12] MEDS ORDERED: MAGNESIUM HYDROXIDE SUSPENSION 30 ML UDCUP PO PRN (20:15)
[2025-06-12] MEDS ORDERED: NICOTINE 14 MG/24 HOUR PATCH TD PRN (20:15)
[2025-06-12] MEDS ORDERED: ALBUTEROL SULFATE HFA 90 MCG/PUFF 8 GM INHALER IH PRN (20:15)
[2025-06-12] MEDS ORDERED: LOPERAMIDE HCL 2 MG CAPSULE PO PRN (20:15)
[2025-06-12] MEDS ORDERED: DOCUSATE SODIUM 100 MG CAPSULE PO PRN (20:15)
[2025-06-12] MEDS ORDERED: ONDANSETRON 4 MG TABLET PO PRN (20:15)
[2025-06-12] MEDS ORDERED: PETROLATUM,WHITE 28 GM JELLY TP PRN (20:15)
[2025-06-12] MEDS ORDERED: MAG HYDROX/ALUMINUM HYD/SIMETH ES 30 ML SUSPENSION UDCUP PO PRN (20:15)
[2025-06-12] MEDS ORDERED: GuaiFENesin/D-METHORPHAN [SUGAR-FREE] 200-20MG/10 ML SYRUP UDCUP PO PRN (20:15)
[2025-06-12] MEDS: MIRTAZAPINE 15 MG TABLET PO SCH (20:47)
[2025-06-13 08:06] VITALS: BP 127/86; PULSE 66; RESP 17; TEMP 98.2; O2SAT 100
[2025-06-13 20:23] VITALS: BP 123/95; PULSE 72; RESP 17; TEMP 98.2; O2SAT 98
[2025-06-14] MEDS: ZOLPIDEM TARTRATE 10 MG TABLET PO PRN (02:48)
[2025-06-14 09:02] LABS: CHOL/HDL RATIO 2.6 (4.2-7.3); LDL CHOL (CALC.) 53.0 mg/dL (0-130)
[2025-06-14 10:48] VITALS: BP 120/91; PULSE 68; RESP 18; TEMP 98; O2SAT 98
[2025-06-15 08:41] VITALS: BP 127/88; PULSE 92; RESP 17; TEMP 98.1; O2SAT 96
[2025-06-15 20:25] VITALS: BP 134/81; PULSE 88; RESP 19; TEMP 97.9; O2SAT 98
[2025-06-16 08:39] VITALS: BP 114/67; PULSE 80; RESP 19; TEMP 97.3; O2SAT 98
[2025-06-16 20:38] VITALS: BP 106/70; PULSE 75; RESP 17; TEMP 97; O2SAT 100
[2025-06-17] MEDS ORDERED: INFLUENZA VIRUS VACCINE TVS (6MO+) 2025-26/PF 45 MCG/0.5 ML SYRINGE IM. ONE
[2025-06-17 08:21] VITALS: BP 125/79; PULSE 79; RESP 18; TEMP 97.7; O2SAT 96
[2025-06-17 20:36] VITALS: BP 129/81; PULSE 81; RESP 18; TEMP 97.9; O2SAT 97
[2025-06-18] MEDS ORDERED: LORazepam 2 MG/ML VIAL ONE (06:33)
[2025-06-18] MEDS: LORazepam 2 MG/ML VIAL IM ONE (06:48)
[2025-06-18 21:00] VITALS: RESP 18
[2025-06-19 20:41] VITALS: BP 118/81; PULSE 89; RESP 19; TEMP 98.4; O2SAT 95
[2025-06-20 10:23] VITALS: BP 117/73; PULSE 96; RESP 17; TEMP 98.2; O2SAT 98
[2025-06-20 20:00] VITALS: BP 109/86; PULSE 86; RESP 18; TEMP 98; O2SAT 96
[2025-06-21 08:48] LABS: CALCIUM, TOTAL 8.6 mg/dL (8.8-10.5); CREATININE 0.98 mg/dL (0.60-1.30); GLOMERULAR FILTR. RATE CALC > 60 mL/min (>60); GLUCOSE,RANDOM 78 mg/dL (70-110); SODIUM SERUM 140 mmol/L (136-145); UREA NITROGEN, BLOOD 13 mg/dL (7-18)
[2025-06-21 09:13] LABS: CHOL/HDL RATIO 3.0 (4.2-7.3); LDL CHOL (CALC.) 71.0 mg/dL (0-130)
[2025-06-21 09:27] VITALS: BP 105/88; PULSE 68; RESP 17; TEMP 97.3; O2SAT 100
[2025-06-21 11:24] VITALS: BP 127/86
[2025-06-22 08:43] VITALS: BP 106/93; PULSE 84; RESP 17; TEMP 98.5; O2SAT 96
[2025-06-22 20:28] VITALS: BP 128/84; PULSE 88; RESP 17; TEMP 98.1; O2SAT 98
[2025-06-23 00:07] LABS: HEPATITIS C AB (EIA) Non Reactive (Non Reactive)
[2025-06-23 09:08] VITALS: BP 109/70; PULSE 82; RESP 18; TEMP 98.4; O2SAT 97
[2025-06-23] MEDS ORDERED: QUET200T PO (11:51)
[2025-06-23] MEDS ORDERED: QUET100T PO (11:51)
[2025-06-23] MEDS ORDERED: AMLO-257 PO (11:53)
== END 2025-06-23 16:25 | disposition home or self-care (01) | DRG 750 ==
LOC: EMS 07:42 → B2S 10:09
PROVIDERS: ADMIT Psychiatry & Neurology Child & Adolescent Psychiatry; ATTEND Psychiatry & Neurology Child & Adolescent Psychiatry
PROC: GZ58ZZZ Individual Psychotherapy, Cognitive-Behavioral (ICD-10-PCS; principal; 2025-06-12)
PROC: GZ56ZZZ Individual Psychotherapy, Supportive (ICD-10-PCS; 2025-06-12)
DX: F20.9 Schizophrenia, unspecified (principal); E87.6 Hypokalemia; Z20.822 Contact with and (suspected) exposure to COVID-19; F15.10 Other stimulant abuse, uncomplicated; I10 Essential (primary) hypertension; G47.00 Insomnia, unspecified; Z79.899 Other long term (current) drug therapy; Z88.8 Allergy status to other drugs, medicaments and biological substances
CPT/HCPCS: 80048; 80061; 80307; 81003; 83036; 84132; 84443; 85025; 86803; 87340; G0480; J1200; J2060; J3230

== ENCOUNTER 2025-06-15 01:35 | Emergency (ER) | payer MEDICAID ==
[~2025-06-15] VITALS: Ht 172.7 cm; Wt 90.0 kg
[2025-06-15 01:56] VITALS: TEMP 97.4
[2025-06-15 03:30] VITALS: BP 137/83; PULSE 99; RESP 18; O2SAT 99
== END 2025-06-15 04:07 | disposition home or self-care (01) ==
LOC: EMS 01:35
DX: F20.9 Schizophrenia, unspecified (principal); R41.82 Altered mental status, unspecified; T42.4X5A Adverse effect of benzodiazepines, initial encounter; Z02.89 Encounter for other administrative examinations; Z79.899 Other long term (current) drug therapy; Z88.5 Allergy status to narcotic agent; Y92.89 Other specified places as the place of occurrence of the external cause
CPT/HCPCS: 82962; 99283

== ENCOUNTER 2025-08-09 20:35 | Emergency (ER) | payer MEDICAID ==
[~2025-08-09] VITALS: Ht 167.6 cm; Wt 75.0 kg
[~2025-08-09 20:35] MED LIST changes: +AMLO-257 PO; -DIPH50CA37 PO; -NALT50TA6 PO; -QUET100T34 PO; +QUET200T PO
[2025-08-10 01:24] LABS: PLATELET COUNT (AUTO) 332 K/uL (150-450); RED BLOOD CELL COUNT(AUTO) 5.20 MIL/uL (4.50-5.90); RED CELL DISTRIBUTION WIDTH 13.5 % (11.5-14.5); WHITE BLOOD COUNT (AUTO) 10.0 K/uL (4.5-11.0)
[2025-08-10] MEDS: ACETAMINOPHEN 500 MG TABLET PO ONE (01:33)
[2025-08-10 01:35] LABS: CALCIUM, TOTAL 9.2 mg/dL (8.8-10.5); CREATININE 1.21 mg/dL (0.60-1.30); GLOMERULAR FILTR. RATE CALC > 60 mL/min (>60); GLUCOSE,RANDOM 135 mg/dL (70-110); SODIUM SERUM 140 mmol/L (136-145); UREA NITROGEN, BLOOD 20 mg/dL (7-18)
[2025-08-10 01:50] VITALS: TEMP 98.1
[2025-08-10 01:59] LABS: TROPONIN I-HIGH SENSITIVITY 4 ng/L (<76)
[2025-08-10 02:34] LABS: COVID AG,FIA SOURCE NASAL SWAB
[2025-08-10 02:56] LABS: SARS-COV2 (COVID) ANTIGEN,FIA Negative (Negative)
[2025-08-10 05:45] VITALS: BP 119/76; PULSE 94; RESP 14; O2SAT 100
== END 2025-08-10 05:55 | disposition home or self-care (01) ==
LOC: EMS 20:35
DX: F20.9 Schizophrenia, unspecified (principal); R07.89 Other chest pain; Z79.899 Other long term (current) drug therapy; Z20.822 Contact with and (suspected) exposure to COVID-19
CPT/HCPCS: 99284; 87426; 80048; 84484; 85025; 36415; G0480

== ENCOUNTER 2025-08-31 21:02 | Emergency (ER) | payer MEDICAID ==
[~2025-08-31] VITALS: Ht 172.7 cm; Wt 90.0 kg
[2025-08-31 21:06] VITALS: BP 169/110; PULSE 99; RESP 18; TEMP 98; O2SAT 99
[2025-08-31 22:08] LABS: PLATELET COUNT (AUTO) 346 K/uL (150-450); RED BLOOD CELL COUNT(AUTO) 5.15 MIL/uL (4.50-5.90); RED CELL DISTRIBUTION WIDTH 13.5 % (11.5-14.5); WHITE BLOOD COUNT (AUTO) 9.2 K/uL (4.5-11.0)
[2025-08-31 22:21] LABS: CALCIUM, TOTAL 9.2 mg/dL (8.8-10.5); CREATININE 0.82 mg/dL (0.60-1.30); GLOMERULAR FILTR. RATE CALC > 60 mL/min (>60); GLUCOSE,RANDOM 106 mg/dL (70-110); SODIUM SERUM 139 mmol/L (136-145); UREA NITROGEN, BLOOD 9 mg/dL (7-18)
== END 2025-09-01 01:37 | disposition home or self-care (01) ==
LOC: EMS 21:02
DX: F20.9 Schizophrenia, unspecified (principal); F15.10 Other stimulant abuse, uncomplicated; Z79.899 Other long term (current) drug therapy
CPT/HCPCS: 99283; 80048; 85025; 36415; G0480

== ENCOUNTER 2025-09-07 17:18 | Emergency (ER) | payer MEDICAID ==
[~2025-09-07] VITALS: Ht 172.7 cm; Wt 100.0 kg
[2025-09-07 17:23] VITALS: BP 149/87; PULSE 86; RESP 18; TEMP 98.1; O2SAT 96
== END 2025-09-07 19:30 | disposition left against medical advice (07) ==
LOC: EMS 17:18
DX: R44.0 Auditory hallucinations (principal); R44.1 Visual hallucinations; Z53.21 Procedure and treatment not carried out due to patient leaving prior to being seen by health care provider
CPT/HCPCS: 99281; Z7502